=== PATIENT | female | born 1990 | race American Indian/Alaskan Native ===

== ENCOUNTER 2017-04-28 21:40 | Inpatient (IN) | payer MEDICAID ==
[2017-04-28] MEDS ORDERED: Nalbuphine 10 MG/1 ML Vial IVPUSH PRN (22:04)
[2017-04-28] MEDS ORDERED: Misoprostol 200 MCG Tab PO PRN (22:04)
[2017-04-28] MEDS ORDERED: Sodium Chloride 0.9% 10 ML Syringe FLUSH PRN (22:04)
[2017-04-28] MEDS ORDERED: Carboprost Tromethamine 250 MCG/1 ML Amp IM PRN (22:04)
[2017-04-28] MEDS ORDERED: Sodium Chloride 0.9% 2.5 ML Syringe FLUSH PRN (22:04)
[2017-04-28] MEDS ORDERED: Water For Irrigation,Sterile 1,000 ML Container IRR PRN (22:04)
[2017-04-28] MEDS ORDERED: Lidocaine 1% 50 ML MDV INJECT PRN (22:04)
[2017-04-28] MEDS ORDERED: Methylergonovine 0.2 MG/1 ML Amp IM PRN (22:04)
[2017-04-28] MEDS ORDERED: Butorphanol 1 MG/ML SDV IVPUSH PRN (22:04)
[2017-04-28] MEDS ORDERED: Oxytocin/Lactated Ringers 30 UNIT/500 ML BAG IV ONE (22:05)
[2017-04-28] MEDS: Lactated Ringers 1,000 ML IV SCH ×3 (22:14→23:34)
[2017-04-28] MEDS ORDERED: Ropivacaine HCl/PF 100 ML ONE (23:15)
[2017-04-28] MEDS ORDERED: fentaNYL 100 MCG/2 ML SDV ONE (23:15)
--- NOTE | 2017-04-28 23:45 | PCM.PREANE ---
Preanesthetic Assessment - Anesthesia/Transfusion/Family Hx Anesthesia History: Prior Anesthesia Without Reaction Transfusion History: No Prior Transfusion(s) - Review of Systems General: No Symptoms Pulmonary: No Symptoms Cardiovascular: No Symptoms Gastrointestinal: No Symptoms Neurological: No Symptoms Other: Reports: None - Physical Assessment Height: 5 ft 7 in Weight: 94.957 kg ASA Class: 2 Mental Status: Alert & Oriented x3 Airway Class: Mallampati = 2 Dentition: Reports: Normal Dentition Thyro-Mental Finger Breadths: 3 Mouth Opening Finger Breadths: 3 ROM/Head Extension: Full Lungs: Clear to Auscultation, Normal Respiratory Effort Cardiovascular: Regular Rate, Regular Rhythm - Lab Values: Laboratory Last Values WBC 9.59 K/uL (4.0-11.0) 04/28/17 22:12 RBC 3.79 M/uL (4.30-5.90) L 04/28/17 22:12 Hgb 11.5 g/dL (12.0-16.0) L 04/28/17 22:12 Hct 33.5 % (36.0-46.0) L 04/28/17 22:12 MCV 88.4 fL (80.0-98.0) 04/28/17 22:12 MCH 30.3 pg (27.0-32.0) 04/28/17 22:12 MCHC 34.3 g/dL (31.0-37.0) 04/28/17 22:12 RDW Std Deviation 48.4 fl (28.0-62.0) 04/28/17 22:12 RDW Coeff of Placido 15 % (11.0-15.0) 04/28/17 22:12 Plt Count 217 K/uL (150-400) 04/28/17 22:12 MPV 9.70 fL (7.40-12.00) 04/28/17 22:12 Nucleated RBC % 0.0 /100WBC 04/28/17 22:12 Nucleated RBCs # 0 K/uL 04/28/17 22:12 Blood Type A POSITIVE 04/28/17 22:12 Antibody Screen NEGATIVE 04/28/17 22:12 - Allergies Allergies/Adverse Reactions: Allergies Allergy/AdvReac Type Severity Reaction Status Date / Time No Known Allergies Allergy Verified 04/28/17 22:03 - Acknowledgements Anesthesia Type Planned: Epidural Pt an Appropriate Candidate for the Planned Anesthesia: Yes Alternatives and Risks of Anesthesia Discussed w Pt/Guardian: Yes Pt/Guardian Understands and Agrees with Anesthesia Plan: Yes PreAnesthesia Questionnaire HEENT History: Reports: None Cardiovascular History: Reports: Heart Murmur Other Cardiovascular History: states had murmur as a child Other Respiratory History: sports induced asthma Gastrointestinal History: Reports: GERD Genitourinary History: Reports: None 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: , Spontaneous : 6 Para: 3 LMP (Approximate): Musculoskeletal History: Reports: None Neurological History: Reports: None Psychiatric History: Reports: Anxiety, Depression Endocrine/Metabolic History: Reports: Obesity/BMI 30+ Hematologic History: Reports: None Immunologic History: Reports: None Oncologic (Cancer) History: Reports: None Dermatologic History: Reports: None - Infectious Disease History Infectious Disease History: Reports: None - Past Surgical History GI Surgical History: Reports: None Female Surgical History: Reports: None - SUBSTANCE USE Smoking Status *Q: Never Smoker Tobacco Use Within Last Twelve Months: No Recreational Drug Use History: No - HOME MEDS Home Medications: Home Meds Docusate Sodium [Colace] 1 cap PO BID 01/22/16 [History] Polyethylene Glycol 3350 1 packet PO DAILY 01/22/16 [History] Sertraline [Zoloft] 0.5 tab PO DAILY 01/22/16 [History] Triamcinolone Acetonide [Triamcinolone Acetonide 0.1% Crm] 1 lotion TOP TID [History] - CURRENT (IN HOUSE) MEDS Current Meds: Current Medications Butorphanol Tartrate (Stadol) 1 mg IVPUSH Q1H PRN PRN Reason: Pain Carboprost Tromethamine (Hemabate Ds) 250 mcg IM ASDIRECTED PRN PRN Reason: Post Hemorrhage Lactated Ringer's (Ringers, Lactated) 1,000 mls @ 150 mls/hr IV ASDIRECTED HUE Last Admin: 04/28/17 23:34 Dose: 999 mls/hr Oxytocin/Lactated Ringer's (Pitocin In Lr 30 Units/500 Ml) 30 unit in 500 mls @ 300 mls/hr IV ONETIME ONE Stop: 04/28/17 23:44 Lidocaine HCl (Xylocaine 1%) 50 ml INJECT .ONCE PRN PRN Reason: Laceration repair Methylergonovine Maleate (Methergine) 0.2 mg IM ASDIRECTED PRN PRN Reason: Post Hemorrhage Misoprostol (Cytotec) 200 mcg PO .ONCE PRN PRN Reason: Post Hemorrhage Nalbuphine HCl (Nubain) 10 mg IVPUSH Q1H PRN PRN Reason: Pain (severe 7-10) Sodium Chloride (Saline Flush) 10 ml FLUSH ASDIRECTED PRN PRN Reason: Keep Vein Open Sodium Chloride (Saline Flush) 2.5 ml FLUSH ASDIRECTED PRN PRN Reason: Keep Vein Open Sterile Water (Sterile Water For Irrigation) 1,000 ml IRR ASDIRECTED PRN PRN Reason: delivery Discontinued Medications Fentanyl (Sublimaze) Confirm Administered Dose 100 mcg .ROUTE .STK-MED ONE Stop: 04/28/17 23:16 Ropivacaine (Naropin 0.2%) Confirm Administered Dose 100 mls @ as directed .ROUTE .STK-MED ONE Stop: 04/28/17 23:16
[2017-04-29] MEDS ORDERED: Bupivacaine 0.5% 10 ML SDV ONE (00:21)
[2017-04-29] MEDS ORDERED: LORazepam 1 MG Tab PO ONE (01:24)
[2017-04-29] MEDS ORDERED: Bisacodyl 10 MG Supp RECTAL PRN (05:49)
[2017-04-29] MEDS ORDERED: Ibuprofen 400 MG Tab PO PRN (05:49)
[2017-04-29] MEDS ORDERED: Lanolin 100% Cream 7 GM Tube TOP PRN (05:49)
[2017-04-29] MEDS ORDERED: oxyCODONE 5 MG Tab PO PRN (05:49)
[2017-04-29] MEDS ORDERED: Docusate Sodium 100 MG Cap PO PRN (05:49)
[2017-04-29] MEDS ORDERED: Acetaminophen 500 MG Tab PO PRN ×2 (05:49)
[2017-04-29] MEDS ORDERED: Ibuprofen 800 MG Tab PO PRN (05:49)
[2017-04-29] MEDS ORDERED: Witch Hazel Medicated Pads 40/Jar TOP PRN (05:49)
[2017-04-29] MEDS ORDERED: Benzocaine/Menthol 20%-0.5% Spray 78 GM Cannister TOP PRN (05:49)
[2017-04-29] MEDS ORDERED: Measles, Mumps & Rubella Vaccine 0.5 ML SDV SUBCUT ONE (05:49)
--- NOTE | 2017-04-29 08:26 | OR ---
SURGEON: Dagmar Giang MD DATE OF PROCEDURE: 04/29/2017 PREOPERATIVE DIAGNOSES: 1. Term at 39 weeks and 3 days. 2. Spontaneous labor. POSTOPERATIVE DIAGNOSES: 1. Term at 39 weeks and 3 days. 2. Spontaneous labor. 3. Delivered. PROCEDURE: Spontaneous vaginal delivery. ANESTHESIA: Epidural. ESTIMATED BLOOD LOSS: 100 mL. COMPLICATIONS: None. DISPOSITION: Mother and baby stable in Labor and Delivery room, bonding. FINDINGS: Live female , 4040 grams, score of 8 and 9 at 1 and 5 minutes respectively. Grossly normal placenta with three-vessel cord. Intact perineum. BRIEF HISTORY: Alea is a 26-year-old, G6, P3-0-2-3, who presented at about 11:00 p.m. on the 28 of April at 39 weeks and 2 days with history of regular contractions since 7:00 p.m. Denied vaginal bleeding, leakage of fluid, and reported active fetus. GBS negative. care was complicated by persistent glycosuria but with normal diabetic screening and fingersticks. On admission, the patient was 4 cm dilated, 80% effaced, station -2, christine every 1- 4 minutes. She requested and received an epidural for pain management and there after an artificial rupture of membranes performed with clear amniotic fluid returned. She progressed to full dilatation within 4hours and commenced active pushing. She pushed a little bit over 45 minutes, bringing the baby's head down to a +4 station, and was set up for delivery in modified dorsal lithotomy position. PROCEDURE IN DETAIL: She had a spontaneous vaginal delivery of a live female infant in direct occipital anterior position, no nuchal cord, clear amniotic fluid at delivery. Anterior and the posterior shoulder and the rest of the baby were delivered without difficulty. Baby was delivered onto the maternal abdomen in the presence of the attendant nursery staff. Baby was vigorous and cried spontaneously at . Delayed cord clamping was performed and cord was subsequently cut by the father of the baby. With delivery of the , oxytocin infusion was commenced for active management of third stage of labor. Cord blood and gas samples were obtained. The placenta was delivered by controlled cord traction, appeared to be complete and intact. Examination of the perineum revealed no lacerations. Uterine massage was performed. The uterus was found to be well contracted below the umbilicus. The patient tolerated the procedure well. Sponge, instrument, and needle counts were correct at the end of the delivery. SUSIE / SHEYLA /[id number] MTDCyndi
--- NOTE | 2017-04-29 17:10 | PCM48HPAN ---
Post Anesthesia Note - EVALUATION WITHIN 48HRS OF ANESTHETIC Vital Signs in Normal Range: Yes Patient Participated in Evaluation: Yes Respiratory Function Stable: Yes Airway Patent: Yes Cardiovascular Function Stable: Yes Hydration Status Stable: Yes Pain Control Satisfactory: Yes Nausea and Vomiting Control Satisfactory: Yes Mental Status Recovered: Yes
[2017-04-30 05:21] VITALS: BP 107/60
--- NOTE | 2017-04-30 11:32 | PCM.PNPP ---
- General Info Date of Service: 04/30/17 Functional Status: Reports: Pain Controlled, Tolerating Diet, Ambulating - Review of Systems General: Denies: Fever, Malaise, Chills HEENT: Denies: Headaches Pulmonary: Denies: Shortness of Breath, Pleuritic Chest Pain, Cough Cardiovascular: Denies: Chest Pain, Palpitations, Dyspnea on Exertion Gastrointestinal: Denies: Difficulty Swallowing Genitourinary: Denies: Dysuria, Pain, Incontinence, Retention Psychiatric: Denies: Depression, Mood Lability, Anxiety - General Info Date of Service: 04/30/17 - Patient Data Vital Signs - Most Recent: Last Vital Signs Temp 36.3 C 04/30/17 04:45 Pulse 74 04/30/17 04:45 Resp 16 04/30/17 04:45 BP 107/60 04/30/17 04:45 Pulse Ox 97 04/30/17 04:45 Weight - Most Recent: 209 lb 5.526 oz Lab Results - Last 24 Hours: Laboratory Results - last 24 hr 04/30/17 Range/Units 05:35 Hgb 10.8 L (12.0-16.0) g/dL Hct 32.5 L (36.0-46.0) % Med Orders - Current: Current Medications Acetaminophen (Tylenol Extra Strength) 500 mg PO Q4H PRN PRN Reason: Pain Last Admin: 04/29/17 12:08 Dose: 500 mg Acetaminophen (Tylenol Extra Strength) 1,000 mg PO Q4H PRN PRN Reason: Pain Benzocaine/Menthol (Dermoplast Pain Relief 20%-0.5% [place]) 78 gm TOP ASDIRECTED PRN PRN Reason: Perineal Comfort Measure Last Admin: 04/29/17 06:04 Dose: 1 canister Bisacodyl (Dulcolax) 10 mg RECTAL .ONCE PRN PRN Reason: Constipation Docusate Sodium (Colace) 100 mg PO BID PRN PRN Reason: Constipation Last Admin: 04/30/17 09:18 Dose: 100 mg Emollient Ointment (Lansinoh Hpa) 0 gm TOP ASDIRECTED PRN PRN Reason: Sore Nipples Ibuprofen (Motrin) 400 mg PO Q4H PRN PRN Reason: Pain Ibuprofen (Motrin) 800 mg PO Q6H PRN PRN Reason: Pain Last Admin: 04/30/17 01:26 Dose: 800 mg Oxycodone HCl (Oxycodone) 5 mg PO Q2H PRN PRN Reason: Pain Last Admin: 04/29/17 12:09 Dose: 5 mg Witch Mary (Tucks) 1 pad TOP ASDIRECTED PRN PRN Reason: comfort care Last Admin: 04/29/17 06:04 Dose: 1 tub Discontinued Medications Bupivacaine HCl (Sensorcaine-Mpf 0.5%) Confirm Administered Dose 10 ml .ROUTE .STK-MED ONE Stop: 04/29/17 00:22 Butorphanol Tartrate (Stadol) 1 mg IVPUSH Q1H PRN PRN Reason: Pain Carboprost Tromethamine (Hemabate Ds) 250 mcg IM ASDIRECTED PRN PRN Reason: Post Hemorrhage Fentanyl (Sublimaze) Confirm Administered Dose 100 mcg .ROUTE .STK-MED ONE Stop: 04/28/17 23:16 Lactated Ringer's (Ringers, Lactated) 1,000 mls @ 150 mls/hr IV ASDIRECTED HUE Last Admin: 04/28/17 23:34 Dose: 999 mls/hr Oxytocin/Lactated Ringer's (Pitocin In Lr 30 Units/500 Ml) 30 unit in 500 mls @ 300 mls/hr IV ONETIME ONE Stop: 04/28/17 23:44 Last Admin: 04/29/17 05:24 Dose: 300 mls/hr Ropivacaine (Naropin 0.2%) Confirm Administered Dose 100 mls @ as directed .ROUTE .STK-MED ONE Stop: 04/28/17 23:16 Lidocaine HCl (Xylocaine 1%) 50 ml INJECT .ONCE PRN PRN Reason: Laceration repair Lorazepam (Ativan) 1 mg PO ONETIME ONE Stop: 04/29/17 01:25 Last Admin: 04/29/17 01:39 Dose: 1 mg Measles/Mumps/Rubella Vaccine Live (M-M-R Ii Vaccine) 0.5 ml SUBCUT .ONCE ONE Stop: 04/29/17 05:50 Methylergonovine Maleate (Methergine) 0.2 mg IM ASDIRECTED PRN PRN Reason: Post Hemorrhage Misoprostol (Cytotec) 200 mcg PO .ONCE PRN PRN Reason: Post Hemorrhage Nalbuphine HCl (Nubain) 10 mg IVPUSH Q1H PRN PRN Reason: Pain (severe 7-10) Sodium Chloride (Saline Flush) 10 ml FLUSH ASDIRECTED PRN PRN Reason: Keep Vein Open Sodium Chloride (Saline Flush) 2.5 ml FLUSH ASDIRECTED PRN PRN Reason: Keep Vein Open Sterile Water (Sterile Water For Irrigation) 1,000 ml IRR ASDIRECTED PRN PRN Reason: delivery Last Admin: 04/29/17 05:20 Dose: 1,000 ml - Infant Interaction Disposition, : in Room with Family Interaction: Holding Feeding: Breastfed ; Nursed Well Support Person: Significant Other - Recovery Exam Fundal Tone: Firm Fundal Level: 2 Fingerbreadths Below Umbilicus Fundal Placement: Midline Lochia Amount: Scant Lochia Color: Rubra/Red Perineum Description: Intact, Minimal Bruising/Swelling Bladder Status: Voiding Urinary Elimination: Voided - Exam General: Alert, Oriented Lungs: Clear to Auscultation, Normal Respiratory Effort Cardiovascular: Regular Rate, Regular Rhythm GI/Abdominal Exam: Normal Bowel Sounds Extremities: No Pedal Edema Psy/Mental Status: Alert, Normal Affect, Normal Mood - Problem List & Annotations (1) Vaginal delivery SNOMED Code(s): 037392291 Code(s): O80 - ENCOUNTER FOR FULL-TERM UNCOMPLICATED DELIVERY Status: Acute Current Visit: Yes - Problem List Review Problem List Initiated/Reviewed/Updated: Yes - Assessment Assessment:: PPD#1 s/p , stable and afebrile Clinically stable for discharge - Plan Plan:: Discharge instructions given Bleeding and infection precautions reviewed Nothing in the vagina for 6 weeks Continue PNV S/S blues and depression reviewed: Patient will restart her Paroxetin , she has enough supply at home Follow up in the clinic in 6 weeks or earlier if any concerns
== END 2017-04-30 14:25 | disposition home or self-care (01) | DRG 775 ==
LOC: MW.OBCHECK 21:40 → MW.OB 21:44 → MW.OBCHECK 22:03 → MW.OB 22:04 → OBSVTOIN 04-29 05:23 → MW.OB 04-29 12:03
PROVIDERS: ADMIT Obstetrics & Gynecology; ATTEND Obstetrics & Gynecology
PROC: 10E0XZZ Delivery of Products of Conception, External Approach (ICD-10-PCS; principal; 2017-04-29)
PROC: 10907ZC Drainage of Amniotic Fluid, Therapeutic from Products of Conception, Via Natural or Artificial Opening (ICD-10-PCS; 2017-04-29)
DX: O80 Encounter for full-term uncomplicated delivery (principal); Z3A.39 39 weeks gestation of pregnancy; Z37.0 Single live birth
CPT/HCPCS: 36415; 51703; 59025; 82962; 85014; 85018; 85027; 86850; 86900; 86901; 90707; A9270-GY; J2795; J3010; J7120

== ENCOUNTER 2017-10-11 20:00 | Emergency (ER) | payer BC, OTHER ==
[2017-10-11] MEDS ORDERED: Ketorolac 30 MG/ML SDV IVPUSH ONE ×2 (20:23→21:09)
[2017-10-11] MEDS ORDERED: Sodium Chloride 0.9% 1,000 ML IV ONE (20:26)
[2017-10-11] MEDS ORDERED: Sodium Chloride 0.9% 500 ML IV SCH (20:30)
--- NOTE | 2017-10-11 20:32 | EDM.PDOC ---
<Jocelyn Larios - Last Filed: 10/11/17 22:16> ED HPI GENERAL MEDICAL PROBLEM - General Chief Complaint: Abdominal Pain Stated Complaint: RT SIDE ABDOMINAL PAIN/DIZZY Time Seen by Provider: 10/11/17 20:18 Source of Information: Reports: Patient History Limitations: Reports: No Limitations - History of Present Illness INITIAL COMMENTS - FREE TEXT/NARRATIVE: HISTORY AND PHYSICAL: History of present illness: [Patient comes to the emergency room complaining of right-sided back and abdominal pain. Pain began one to 2 hours ago and has gradually been getting worse. She rates the pain as 10 out of 10. Pain is to her right mid back and right flank, upper abdomen and lower abdomen. The pain has been constant for the last 2 hours. She has been following with her regular provider in [place] and is scheduled for a gallbladder ultrasound in the next couple of days due to some epigastric pain she's been experiencing. Feels that the pain she is experiencing tonight is different than the epigastric pain she's been having. Has been taking ranitidine 150 mg daily, until one lorazepam since the onset of the pain. Was experiencing some tightness across her chest and some shortness of breath which is not uncommon for her when she is experiencing anxiety. History of PTSD. One dose of Lorazepam has improved these symptoms considerably.] Review of systems: As per history of present illness and below otherwise all systems reviewed and negative. Past medical history: As per history of present illness and as reviewed below otherwise noncontributory. Surgical history: As per history of present illness and as reviewed below otherwise noncontributory. Social history: No reported history of drug or alcohol abuse. Family history: As per history of present illness and as reviewed below otherwise noncontributory. Physical exam: HEENT: Atraumatic, normocephalic. Oral mucous membranes are pink and moist. Neck supple no lymphadenopathy. Lungs: Clear to auscultation, breath sounds equal bilaterally. Heart: S1S2, regular, negative for clicks, rubs, or JVD. Abdomen: Bowel sounds are normoactive throughout. Abdomen is soft and nondistended. She is tender with palpation over the right upper quadrant and right flank area. No Masses guarding or rebound. Negative for costovertebral tenderness. Pelvis: Stable nontender. Genitourinary: Deferred. Rectal: Deferred. Extremities: Atraumatic. Neurovascular unremarkable. Neuro: Awake, alert, oriented. Motor and sensory unremarkable throughout. Exam nonfocal. Diagnostics: [CBC, CMP, lipase, amylase, urinalysis, urine , abdominal ultrasound] Therapeutics: [1 L normal saline, Toradol 30 mg IV, Zofran 4 mg IV, morphine 2 mg IV] Impression: [RUQ abd pain] Plan: [] Definitive disposition and diagnosis as appropriate pending reevaluation and review of above. - Related Data Allergies Allergy/AdvReac Type Severity Reaction Status Date / Time No Known Allergies Allergy Verified 04/28/17 22:03 Home Meds: Home Meds Polyethylene Glycol 3350 1 packet PO DAILY 01/22/16 [History] Vit W-Ca,Fe,FA(<1 mg) [ Vitamins] 1 tab PO DAILY 04/29/17 [ History] Past Medical History HEENT History: Reports: None Cardiovascular History: Reports: Heart Murmur Other Cardiovascular History: states had murmur as a child Other Respiratory History: sports induced asthma Gastrointestinal History: Reports: GERD Genitourinary History: Reports: None [employer] History: Reports: , Spontaneous Musculoskeletal History: Reports: None Neurological History: Reports: None Psychiatric History: Reports: Anxiety, Depression Endocrine/Metabolic History: Reports: Obesity/BMI 30+ Hematologic History: Reports: None Immunologic History: Reports: None Oncologic (Cancer) History: Reports: None Dermatologic History: Reports: None - Infectious Disease History Infectious Disease History: Reports: None - Past Surgical History GI Surgical History: Reports: None Female Surgical History: Reports: None Social & Family History - Family History Family Medical History: Noncontributory Cardiac: Reports: Other (See Below) Other Cardiac Family History: Patient states mother's side of family may have issues, she would have to ask her. Endocrine/Metabolic: Reports: Diabetes, type II - Tobacco Use Smoking Status *Q: Never Smoker - Recreational Drug Use Recreational Drug Use: No Drug Use in Last 12 Months: No ED ROS GENERAL - Review of Systems Review Of Systems: ROS reveals no pertinent complaints other than HPI. ED EXAM, GI/ABD - Physical Exam Exam: See Below Course - Orders/Labs/Meds Orders: Active Orders 24 hr Category Date Time Status Abdomen Ltd [US] Stat Exams 10/11/17 21:06 Taken Labs: Laboratory Tests 0210/11/17 10/11/17 Range/Units 20:28 20:28 20:33 WBC (4.0-11.0) K/uL RBC (4.30-5.90) M/uL Hgb (12.0-16.0) g/dL Hct (36.0-46.0) % MCV (80.0-98.0) fL MCH (27.0-32.0) pg MCHC (31.0-37.0) g/dL RDW Std Deviation (28.0-62.0) fl RDW Coeff of Placido (11.0-15.0) % Plt Count (150-400) K/uL MPV (7.40-12.00) fL Neut % (Auto) (48.0-80.0) % Lymph % (Auto) (16.0-40.0) % [place] % (Auto) (0.0-15.0) % Eos % (Auto) (0.0-7.0) % Baso % (Auto) (0.0-1.5) % Neut # (Auto) (1.4-5.7) K/uL Lymph # (Auto) (0.6-2.4) K/uL [place] # (Auto) (0.0-0.8) K/uL Eos # (Auto) (0.0-0.7) K/uL Baso # (Auto) (0.0-0.1) K/uL Nucleated RBC % /100WBC Nucleated RBCs # K/uL Sodium 140 (136-146) mmol/L Potassium 3.6 (3.5-5.1) mmol/L Chloride 106 (98-110) mmol/L Carbon Dioxide 23 (21-31) mmol/L BUN 12 (6.0-23.0) mg/dL Creatinine 0.7 (0.6-1.5) mg/dL Est Cr Clr Drug Dosing TNP Estimated GFR (MDRD) > 60.0 ml/min Glucose 92 (60-110) mg/dL Calcium 9.7 (8.8-10.8) mg/dL Total Bilirubin 0.4 (0.1-1.5) mg/dL AST 31 (5-40) IU/L ALT 61 H (8-54) IU/L Alkaline Phosphatase 105 (40-150) Total Protein 8.1 H (6.0-8.0) g/dL Albumin 4.7 (3.5-5.0) g/dL Globulin 3.4 (2.0-3.5) g/dL Albumin/Globulin Ratio 1.4 (1.3-2.8) Amylase 44 (10-90) U/L Lipase 17 (7-80) U/L Urine Color YELLOW Urine Appearance CLEAR Urine pH 7.0 (5.0-8.0) Ur Specific [place] 1.020 (1.001-1.035) Urine Protein NEGATIVE (NEGATIVE) mg/dL Urine Glucose (UA) NEGATIVE (NEGATIVE) mg/dL Urine Ketones NEGATIVE (NEGATIVE) mg/dL Urine Occult Blood NEGATIVE (NEGATIVE) Urine Nitrite NEGATIVE (NEGATIVE) Urine Bilirubin NEGATIVE (NEGATIVE) Urine Urobilinogen 1.0 (<2.0) EU/dL Ur Leukocyte Esterase NEGATIVE (NEGATIVE) Urine RBC 0-1 (0-2/HPF) Urine WBC 0-1 (0-5/HPF) Ur Epithelial Cells FEW (NONE-FEW) Amorphous Sediment LIGHT (NEGATIVE) Urine Bacteria FEW (NEGATIVE) Urine HCG, Qual NEGATIVE (NEGATIVE) 10/11/17 Range/Units 20:33 WBC 7.22 (4.0-11.0) K/uL RBC 4.51 (4.30-5.90) M/uL Hgb 13.5 (12.0-16.0) g/dL Hct 38.7 (36.0-46.0) % MCV 85.8 (80.0-98.0) fL MCH 29.9 (27.0-32.0) pg MCHC 34.9 (31.0-37.0) g/dL RDW Std Deviation 39.9 (28.0-62.0) fl RDW Coeff of Placido 13 (11.0-15.0) % Plt Count 265 (150-400) K/uL MPV 9.60 (7.40-12.00) fL Neut % (Auto) 55.5 (48.0-80.0) % Lymph % (Auto) 33.4 (16.0-40.0) % [place] % (Auto) 7.5 (0.0-15.0) % Eos % (Auto) 3.2 (0.0-7.0) % Baso % (Auto) 0.4 (0.0-1.5) % Neut # (Auto) 4.0 (1.4-5.7) K/uL Lymph # (Auto) 2.4 (0.6-2.4) K/uL [place] # (Auto) 0.5 (0.0-0.8) K/uL Eos # (Auto) 0.2 (0.0-0.7) K/uL Baso # (Auto) 0.0 (0.0-0.1) K/uL Nucleated RBC % 0.0 /100WBC Nucleated RBCs # 0 K/uL Sodium (136-146) mmol/L Potassium (3.5-5.1) mmol/L Chloride (98-110) mmol/L Carbon Dioxide (21-31) mmol/L BUN (6.0-23.0) mg/dL Creatinine (0.6-1.5) mg/dL Est Cr Clr Drug Dosing Estimated GFR (MDRD) ml/min Glucose (60-110) mg/dL Calcium (8.8-10.8) mg/dL Total Bilirubin (0.1-1.5) mg/dL AST (5-40) IU/L ALT (8-54) IU/L Alkaline Phosphatase (40-150) Total Protein (6.0-8.0) g/dL Albumin (3.5-5.0) g/dL Globulin (2.0-3.5) g/dL Albumin/Globulin Ratio (1.3-2.8) Amylase (10-90) U/L Lipase (7-80) U/L Urine Color Urine Appearance Urine pH (5.0-8.0) Ur Specific [place] (1.001-1.035) Urine Protein (NEGATIVE) mg/dL Urine Glucose (UA) (NEGATIVE) mg/dL Urine Ketones (NEGATIVE) mg/dL Urine Occult Blood (NEGATIVE) Urine Nitrite (NEGATIVE) Urine Bilirubin (NEGATIVE) Urine Urobilinogen (<2.0) EU/dL Ur Leukocyte Esterase (NEGATIVE) Urine RBC (0-2/HPF) Urine WBC (0-5/HPF) Ur Epithelial Cells (NONE-FEW) Amorphous Sediment (NEGATIVE) Urine Bacteria (NEGATIVE) Urine HCG, Qual (NEGATIVE) Meds: Medications Discontinued Medications Generic Name Dose Route Start Last Admin Trade Name Freq PRN Reason Stop Dose Admin Sodium Chloride 500 mls @ 999 mls/hr 10/11/17 20:30 Normal Saline IV STAT HUE Sodium Chloride 1,000 mls @ 999 mls/hr 10/11/17 20:26 10/11/17 20:37 Normal Saline IV 10/11/17 21:26 999 mls/hr STAT ONE Administration Ketorolac Tromethamine 30 mg 10/11/17 20:23 10/11/17 20:38 Toradol IVPUSH 10/11/17 20:24 Not Given ONETIME ONE Ketorolac Tromethamine 30 mg 10/11/17 21:09 10/11/17 21:32 Toradol IVPUSH 10/11/17 21:10 30 mg ONETIME ONE Administration Morphine Sulfate 2 mg 10/11/17 21:09 10/11/17 21:33 Morphine IVPUSH 10/11/17 21:10 2 mg ONETIME ONE Administration Ondansetron HCl 4 mg 10/11/17 21:09 10/11/17 21:32 Zofran IVPUSH 10/11/17 21:10 4 mg ONETIME ONE Administration - Re-Assessments/Exams Free Text/Narrative Re-Assessment/Exam: 10/11/17 21:10 Patient had refused pain medications prior. Upon reading exam she is complaining more of pain across her entire upper abdomen and with leg pain medication at this time. Morphine and Zofran are ordered. Gallbladder ultrasound is also ordered Departure - Departure Disposition: Home, Self-Care 01 Clinical Impression: Cholelithiasis - Discharge Information Referrals: PCP,None [Primary Care Provider] - Forms: ED Department Discharge Additional Instructions: My general discharge The following information is given to patients seen in the emergency department who are being discharged to home. This information is to outline your options for follow-up care. We provide all patients seen in our emergency department with a follow-up referral. The need for follow-up, as well as the timing and circumstances, are variable depending upon the specifics of your emergency department visit. If you don't have a primary care physician on staff, we will provide you with a referral. We always advise you to contact your personal physician following an emergency department visit to inform them of the circumstance of the visit and for follow-up with them and/or the need for any referrals to a consulting specialist. The emergency department will also refer you to a specialist when appropriate. This referral assures that you have the opportunity for follow-up care with a specialist. All of these measure are taken in an effort to provide you with optimal care, which includes your follow-up. Under all circumstances we always encourage you to contact your private physician who remains a resource for coordinating your care. When calling for follow-up care, please make the office aware that this follow-up is from your recent emergency room visit. If for any reason you are refused follow-up, please contact the [facility] at and asked to speak to the emergency department charge nurse. My General Surgery [facility] General Surgery Professional Building [address] [place] [address], [address] [place] [address] <Jack Villarreal - Last Filed: 10/11/17 22:36> ED HPI GENERAL MEDICAL PROBLEM - History of Present Illness INITIAL COMMENTS - FREE TEXT/NARRATIVE: This Dr. Villarreal taking over care for patient. I went and fully assessed patient and aware of all previous test done. Ultrasound did come back revealing multiple gallstones present but no evidence of cholecystitis. She did have a positive sonographic Agarwal sign. I did talk to Dr. Weiner, surgery, who is now aware the patient. She has no leukocytosis and all her other labs were unremarkable. He will see the patient tomorrow morning between 8 and 10 during his normal office hours. These instructions were given to the patient and she was given a prescription for [place] 5-325 #10 and Zofran sublingual. Patient was discharged in condition and instructed to return emergency department if she had any further questions or new or worsening symptoms. ED ROS GENERAL - Review of Systems Review Of Systems: See Below ED EXAM, GI/ABD - Physical Exam Exam: See Below Departure - Departure Time of Disposition: 22:36
[2017-10-11 21:04] LABS: CHLORIDE,CL 106 mmol/L (98-110); SODIUM,NA 140 mmol/L (136-146)
[2017-10-11] MEDS ORDERED: Ondansetron 4 MG/2 ML SDV IVPUSH ONE (21:09)
[2017-10-11] MEDS ORDERED: Morphine 2 MG/ML Syringe IVPUSH ONE (21:09)
[2017-10-11 22:42] VITALS: BP 117/68
--- NOTE | 2017-10-12 09:19 | US ---
EXAM DATE: 10/11/17 PATIENT'S AGE: 27 Patient: LOBO QUINTERO Facility: [place], [place] Site . Site : 1990 Study: US Abdomen [id number] 10:09:02 PM Ordering Physician: Doctor Landrum Final Report: INDICATION: Right upper quadrant pain TECHNIQUE: Ultrasound abdomen limited. Sonographic images of the right upper quadrant were obtained using rubio-scale and color Doppler images. COMPARISON: None FINDINGS: Liver: The liver parenchyma is normal in echotexture. Gallbladder: Multiple echogenic shadowing gallstones are present. The gallbladder wall is normal in appearance. No pericholecystic fluid is present. A sonographic Agarwal sign was reported. Common bile duct: 0.6 cm. The common bile duct is normal in appearance and size. Pancreas: The visualized portions of the pancreatic head and body are normal in appearance. Right Kidney: 12.2 cm. No hydronephrosis or ureterectasis is seen. Vascular: Proximal abdominal aorta and IVC are normal in caliber. IMPRESSION: 1. Multiple gallstones are present with no sonographic evidence of cholecystitis at this time. Close clinical follow up is recommended given the presence of sonographic Agarwal`s sign. Dictated by Josh Mijares MD @ 10/11/2017 10:21:23 PM Dictated by: Josh Mijares MD @ 10/11/2017 22:21:27 (Electronic Signature) Report Signed by Proxy. ODELL
== END 2017-10-11 22:55 | disposition home or self-care (01) ==
LOC: MW.ED 20:00
DX: K80.20 Calculus of gallbladder without cholecystitis without obstruction (principal); Z79.899 Other long term (current) drug therapy
CPT/HCPCS: 36415; 76705; 80053; 81001; 81025; 82150; 83690; 85025; 96361; 96374; 96375; 99284; J1885; J2270; J2405; J7040; 99283

== ENCOUNTER 2017-10-18 19:46 | Emergency (ER) | payer BC, OTHER ==
[2017-10-18] MEDS ORDERED: Ondansetron 4 MG/2 ML SDV IVPUSH ONE (20:07)
[2017-10-18 20:12] VITALS: BP 117/63
[2017-10-18] MEDS ORDERED: Sodium Chloride 0.9% 500 ML IV SCH (20:15)
--- NOTE | 2017-10-18 20:16 | EDM.PDOC ---
ED HPI GENERAL MEDICAL PROBLEM - General Chief Complaint: General Stated Complaint: DIZZY Time Seen by Provider: 10/18/17 20:14 Source of Information: Reports: Patient - History of Present Illness INITIAL COMMENTS - FREE TEXT/NARRATIVE: HISTORY AND PHYSICAL: History of present illness: [Patient with history of anxiety presents with dizziness shortness of breath that began approximately one hour ago, she states that she took 1 mg of Ativan at that time, she is in no distress no fever nausea vomiting diarrhea constipation chest pain shortness breath headache or palpitation no bowel or urine symptoms ] Patient has known gallstones and will be following with general surgery concerning this however this does not come into play today, she did have some anxiety reaction and dizziness along with shortness of breath that has all resolved since being here she does have some muscle spasm than on the right paraspinous muscles as well as right pectoralis major but does not describe any injury that would lead to this this has improved with fluid hydration as well as she had taken the Ativan which would help relax her muscles Review of systems: As per history of present illness and below otherwise all systems reviewed and negative. Past medical history: As per history of present illness and as reviewed below otherwise noncontributory. Surgical history: As per history of present illness and as reviewed below otherwise noncontributory. Social history: No reported history of drug or alcohol abuse. Family history: As per history of present illness and as reviewed below otherwise noncontributory. Physical exam: HEENT: Atraumatic, normocephalic, pupils reactive, negative for conjunctival pallor or scleral icterus, mucous membranes moist, throat clear, neck supple, nontender, trachea midline. Lungs: Clear to auscultation, breath sounds equal bilaterally, chest nontender. Heart: S1S2, regular, negative for clicks, rubs, or JVD. Abdomen: Soft, nondistended, nontender. Negative for masses or hepatosplenomegaly. Negative for costovertebral tenderness. Pelvis: Stable nontender. Genitourinary: Deferred. Rectal: Deferred. Extremities: Atraumatic, negative for cords or calf pain. Neurovascular unremarkable. Neuro: Awake, alert, oriented. Cranial nerves II through XII unremarkable. Cerebellum unremarkable. Motor and sensory unremarkable throughout. Exam nonfocal. Diagnostics: [CBC CMP UA cardiac enzymes drug screen EKG Chest 1 view ] Therapeutics: [Patient took Ativan 1 mg by mouth one hour prior to arrival Normal saline bolus 500 mL Zofran 8 mg IV ] Impression: [Dizziness resolved Shortness of breath sensation-resolved Anxiety reaction History of gallstones Paraspinous muscle spasm] Definitive disposition and diagnosis as appropriate pending reevaluation and review of above. RUQ abdomen Pain Score (Numeric/FACES): 10 - Related Data Allergies Allergy/AdvReac Type Severity Reaction Status Date / Time No Known Allergies Allergy Verified 10/18/17 20:09 Home Meds: Home Meds Polyethylene Glycol 3350 1 packet PO DAILY 01/22/16 [History] Vit W-Ca,Fe,FA(<1 mg) [ Vitamins] 1 tab PO DAILY 04/29/17 [ History] LORazepam 1 mg PO DAILY PRN 10/18/17 [History] Past Medical History HEENT History: Reports: None Cardiovascular History: Reports: Heart Murmur Other Cardiovascular History: states had murmur as a child Other Respiratory History: sports induced asthma Gastrointestinal History: Reports: GERD Genitourinary History: Reports: None GUIDE FOREIGN TOUR History: Reports: , Spontaneous Musculoskeletal History: Reports: None Neurological History: Reports: None Psychiatric History: Reports: Anxiety, Depression Endocrine/Metabolic History: Reports: Obesity/BMI 30+ Hematologic History: Reports: None Immunologic History: Reports: None Oncologic (Cancer) History: Reports: None Dermatologic History: Reports: None - Infectious Disease History Infectious Disease History: Reports: None - Past Surgical History GI Surgical History: Reports: None Female Surgical History: Reports: Tubal Ligation Social & Family History - Family History Family Medical History: Noncontributory Cardiac: Reports: Other (See Below) Other Cardiac Family History: Patient states mother's side of family may have issues, she would have to ask her. Endocrine/Metabolic: Reports: Diabetes, type II - Tobacco Use Smoking Status *Q: Never Smoker - Recreational Drug Use Recreational Drug Use: No Drug Use in Last 12 Months: No ED ROS GENERAL - Review of Systems Review Of Systems: ROS reveals no pertinent complaints other than HPI. ED EXAM, GENERAL - Physical Exam Exam: See Below Course - Vital Signs Last Recorded V/S: Last Vital Signs Temp 98.1 F 10/18/17 19:46 Pulse 76 10/18/17 19:46 Resp 20 10/18/17 19:46 BP 117/63 10/18/17 19:46 Pulse Ox 100 10/18/17 19:46 - Orders/Labs/Meds Orders: Active Orders 24 hr Category Date Time Status EKG Documentation Completion [RC] STAT Care 10/18/17 20:33 Active Chest 1V Frontal [CR] Stat Exams 10/18/17 20:14 Ordered Sodium Chloride 0.9% [Normal Saline] 500 ml Med 10/18/17 20:15 Active IV STAT Medication Orders Sodium Chloride (Normal Saline) 500 mls @ 999 mls/hr IV STAT HUE Last Admin: 10/18/17 20:30 Dose: 999 mls/hr Labs: Laboratory Tests 10/18/17 10/18/17 10/18/17 Range/Units 20:19 20:19 20:19 WBC 8.15 (4.0-11.0) K/uL RBC 4.17 L (4.30-5.90) M/uL Hgb 12.3 (12.0-16.0) g/dL Hct 35.1 L (36.0-46.0) % MCV 84.2 (80.0-98.0) fL MCH 29.5 (27.0-32.0) pg MCHC 35.0 (31.0-37.0) g/dL RDW Std Deviation 38.4 (28.0-62.0) fl RDW Coeff of Placido 13 (11.0-15.0) % Plt Count 266 (150-400) K/uL MPV 9.10 (7.40-12.00) fL Neut % (Auto) 66.2 (48.0-80.0) % Lymph % (Auto) 26.6 (16.0-40.0) % [place] % (Auto) 5.6 (0.0-15.0) % Eos % (Auto) 1.2 (0.0-7.0) % Baso % (Auto) 0.4 (0.0-1.5) % Neut # (Auto) 5.4 (1.4-5.7) K/uL Lymph # (Auto) 2.2 (0.6-2.4) K/uL [place] # (Auto) 0.5 (0.0-0.8) K/uL Eos # (Auto) 0.1 (0.0-0.7) K/uL Baso # (Auto) 0.0 (0.0-0.1) K/uL Nucleated RBC % 0.0 /100WBC Nucleated RBCs # 0 K/uL Sodium 139 (136-146) mmol/L Potassium 3.5 (3.5-5.1) mmol/L Chloride 108 (98-110) mmol/L Carbon Dioxide 22 (21-31) mmol/L BUN 11 (6.0-23.0) mg/dL Creatinine 0.8 (0.6-1.5) mg/dL Est Cr Clr Drug Dosing TNP Estimated GFR (MDRD) > 60.0 ml/min Glucose 109 (60-110) mg/dL Calcium 9.4 (8.8-10.8) mg/dL Total Bilirubin 0.4 (0.1-1.5) mg/dL AST 30 (5-40) IU/L ALT 65 H (8-54) IU/L Alkaline Phosphatase 95 (40-150) Creatine Kinase 62 (9-236) IU/L CK-MB (CK-2) 0.7 (0-6.6) ng/ml Troponin I < 0.10 (0.0-0.29) NG/ML Total Protein 7.1 (6.0-8.0) g/dL Albumin 4.2 (3.5-5.0) g/dL Globulin 2.9 (2.0-3.5) g/dL Albumin/Globulin Ratio 1.5 (1.3-2.8) Urine Color Urine Appearance Urine pH (5.0-8.0) Ur Specific [place] (1.001-1.035) Urine Protein (NEGATIVE) mg/dL Urine Glucose (UA) (NEGATIVE) mg/dL Urine Ketones (NEGATIVE) mg/dL Urine Occult Blood (NEGATIVE) Urine Nitrite (NEGATIVE) Urine Bilirubin (NEGATIVE) Urine Urobilinogen (<2.0) EU/dL Ur Leukocyte Esterase (NEGATIVE) Urine RBC (0-2/HPF) Urine WBC (0-5/HPF) Ur Epithelial Cells (NONE-FEW) Urine Bacteria (NEGATIVE) Urine HCG, Qual (NEGATIVE) Urine Opiates Screen (NEGATIVE) Ur Oxycodone Screen (NEGATIVE) Urine Methadone Screen (NEGATIVE) Ur Barbiturates Screen (NEGATIVE) Ur Phencyclidine Scrn (NEGATIVE) Ur Amphetamine Screen (NEGATIVE) U Methamphetamines Scrn (NEGATIVE) U Benzodiazepines Scrn (NEGATIVE) U Cocaine Metab Screen (NEGATIVE) U Marijuana (THC) Screen (NEGATIVE) 10/18/17 10/18/17 10/18/17 Range/Units 20:23 20:23 20:23 WBC (4.0-11.0) K/uL RBC (4.30-5.90) M/uL Hgb (12.0-16.0) g/dL Hct (36.0-46.0) % MCV (80.0-98.0) fL MCH (27.0-32.0) pg MCHC (31.0-37.0) g/dL RDW Std Deviation (28.0-62.0) fl RDW Coeff of Placido (11.0-15.0) % Plt Count (150-400) K/uL MPV (7.40-12.00) fL Neut % (Auto) (48.0-80.0) % Lymph % (Auto) (16.0-40.0) % [place] % (Auto) (0.0-15.0) % Eos % (Auto) (0.0-7.0) % Baso % (Auto) (0.0-1.5) % Neut # (Auto) (1.4-5.7) K/uL Lymph # (Auto) (0.6-2.4) K/uL [place] # (Auto) (0.0-0.8) K/uL Eos # (Auto) (0.0-0.7) K/uL Baso # (Auto) (0.0-0.1) K/uL Nucleated RBC % /100WBC Nucleated RBCs # K/uL Sodium (136-146) mmol/L Potassium (3.5-5.1) mmol/L Chloride (98-110) mmol/L Carbon Dioxide (21-31) mmol/L BUN (6.0-23.0) mg/dL Creatinine (0.6-1.5) mg/dL Est Cr Clr Drug Dosing Estimated GFR (MDRD) ml/min Glucose (60-110) mg/dL Calcium (8.8-10.8) mg/dL Total Bilirubin (0.1-1.5) mg/dL AST (5-40) IU/L ALT (8-54) IU/L Alkaline Phosphatase (40-150) Creatine Kinase (9-236) IU/L CK-MB (CK-2) (0-6.6) ng/ml Troponin I (0.0-0.29) NG/ML Total Protein (6.0-8.0) g/dL Albumin (3.5-5.0) g/dL Globulin (2.0-3.5) g/dL Albumin/Globulin Ratio (1.3-2.8) Urine Color YELLOW Urine Appearance CLEAR Urine pH 6.0 (5.0-8.0) Ur Specific [place] <= 1.005 (1.001-1.035) Urine Protein NEGATIVE (NEGATIVE) mg/dL Urine Glucose (UA) NEGATIVE (NEGATIVE) mg/dL Urine Ketones NEGATIVE (NEGATIVE) mg/dL Urine Occult Blood NEGATIVE (NEGATIVE) Urine Nitrite NEGATIVE (NEGATIVE) Urine Bilirubin NEGATIVE (NEGATIVE) Urine Urobilinogen 0.2 (<2.0) EU/dL Ur Leukocyte Esterase NEGATIVE (NEGATIVE) Urine RBC 0-1 (0-2/HPF) Urine WBC 0-1 (0-5/HPF) Ur Epithelial Cells RARE (NONE-FEW) Urine Bacteria RARE (NEGATIVE) Urine HCG, Qual NEGATIVE (NEGATIVE) Urine Opiates Screen NEGATIVE (NEGATIVE) Ur Oxycodone Screen NEGATIVE (NEGATIVE) Urine Methadone Screen NEGATIVE (NEGATIVE) Ur Barbiturates Screen NEGATIVE (NEGATIVE) Ur Phencyclidine Scrn NEGATIVE (NEGATIVE) Ur Amphetamine Screen NEGATIVE (NEGATIVE) U Methamphetamines Scrn NEGATIVE (NEGATIVE) U Benzodiazepines Scrn NEGATIVE (NEGATIVE) U Cocaine Metab Screen NEGATIVE (NEGATIVE) U Marijuana (THC) Screen NEGATIVE (NEGATIVE) Meds: Medications Generic Name Dose Route Start Last Admin Trade Name Freq PRN Reason Stop Dose Admin Sodium Chloride 500 mls @ 999 mls/hr 10/18/17 20:15 10/18/17 20:30 Normal Saline IV 999 mls/hr STAT HUE Administration Discontinued Medications Generic Name Dose Route Start Last Admin Trade Name Freq PRN Reason Stop Dose Admin Ondansetron HCl 8 mg 10/18/17 20:07 10/18/17 20:33 Zofran IVPUSH 10/18/17 20:08 8 mg ONETIME ONE Administration Departure - Departure Time of Disposition: 21:26 Disposition: Home, Self-Care 01 Condition: Good Clinical Impression: Spasm of lumbar paraspinous muscle, Anxiety, Cholelithiasis - Discharge Information Referrals: Cole Mallory MD [Primary Care Provider] - Forms: ED Department Discharge Additional Instructions: Continue medication as directed Return if symptoms persist or worsen Follow-up with general surgery concerning the gallstones/cholelithiasis Follow-up with primary care as needed in the interim [facility] - Primary Care [address] [place] [id number] [facility] - General Surgery Professional Building [address] [place] [address], [address] [place] [address] The following information is given to patients seen in the emergency department who are being discharged to home. This information is to outline your options for follow-up care. We provide all patients seen in our emergency department with a follow-up referral. The need for follow-up, as well as the timing and circumstances, are variable depending upon the specifics of your emergency department visit. If you don't have a primary care physician on staff, we will provide you with a referral. We always advise you to contact your personal physician following an emergency department visit to inform them of the circumstance of the visit and for follow-up with them and/or the need for any referrals to a consulting specialist. The emergency department will also refer you to a specialist when appropriate. This referral assures that you have the opportunity for follow-up care with a specialist. All of these measure are taken in an effort to provide you with optimal care, which includes your follow-up. Under all circumstances we always encourage you to contact your private physician who remains a resource for coordinating your care. When calling for follow-up care, please make the office aware that this follow-up is from your recent emergency room visit. If for any reason you are refused follow-up, please contact the [facility] emergency department at and asked to speak to the emergency department charge nurse. - My Orders Last 24 Hours: My Active Orders 10/18/17 20:14 Chest 1V Frontal [CR] Stat 10/18/17 20:15 Sodium Chloride 0.9% [Normal Saline] 500 ml IV STAT 10/18/17 20:33 EKG Documentation Completion [RC] STAT - Assessment/Plan Last 24 Hours: My Active Orders 10/18/17 20:14 Chest 1V Frontal [CR] Stat 10/18/17 20:15 Sodium Chloride 0.9% [Normal Saline] 500 ml IV STAT 10/18/17 20:33 EKG Documentation Completion [RC] STAT
[2017-10-18 21:01] LABS: CHLORIDE,CL 108 mmol/L (98-110); SODIUM,NA 139 mmol/L (136-146)
--- NOTE | 2017-10-19 14:08 | CR ---
EXAM DATE: 10/18/17 PATIENT'S AGE: 27 Patient: LOBO QUINTERO Facility: [place], [place] Site . Site : 1990 Study: XRay Chest [id number]/[id number] 9:35:07 PM Ordering Physician: Ha Betancourt Final Report: INDICATION: dizzy, rt sided chest pain, sob TECHNIQUE: PA chest film submitted. COMPARISON: None. FINDINGS: Heart size and pulmonary vasculature within normal limits. Lung villareal are clear. IMPRESSION: No active disease. Dictated by Charlie Bentley MD @ 10/18/2017 9:47:53 PM Dictated by: Charlie Bentley MD @ 10/18/2017 21:48:00 (Electronic Signature) Report Signed by Proxy. [facility] HOSPITALCyndi
== END 2017-10-18 21:49 | disposition home or self-care (01) ==
LOC: MW.ED 19:46
DX: K80.20 Calculus of gallbladder without cholecystitis without obstruction (principal); F41.9 Anxiety disorder, unspecified; M62.830 Muscle spasm of back; Z79.899 Other long term (current) drug therapy
CPT/HCPCS: 36415; 71045; 80053; 80305; 81001; 81025; 82550; 82553; 84484; 85025; 87804; 96374; 99284; J2405; J7040

== ENCOUNTER 2017-10-31 06:31 | Day surgery (SDC) | payer BC, OTHER ==
[~2017-10-31 06:31] MED LIST: Lactated Ringers 1,000 ML IV SCH; ceFAZolin 2 GM in Premix Bag 1 BAG IV ONE
[2017-10-31] MEDS ORDERED: Scopolamine 1.5 MG Transdermal Patch TRDERM PRN (07:12)
--- NOTE | 2017-10-31 07:15 | PCM.PREANE ---
Preanesthetic Assessment - Anesthesia/Transfusion/Family Hx Anesthesia History: Prior Anesthesia Without Reaction Family History of Anesthesia Reaction: No Transfusion History: No Prior Transfusion(s) Intubation History: Unknown - Review of Systems General: No Symptoms Pulmonary: No Symptoms Cardiovascular: No Symptoms Gastrointestinal: Abdominal Pain Neurological: No Symptoms Other: Reports: None - Physical Assessment O2 Sat by Pulse Oximetry: 97 Respiratory Rate: 16 Vital Signs: Last Vital Signs Temp 36 C 10/31/17 06:39 Pulse 68 10/31/17 06:39 Resp 16 10/31/17 06:39 BP 114/58 L 10/31/17 06:39 Pulse Ox 97 10/31/17 06:39 Height: 1.7 m Weight: 91.626 kg ASA Class: 2 Mental Status: Alert & Oriented x3 Airway Class: Mallampati = 1 Dentition: Reports: Normal Dentition Thyro-Mental Finger Breadths: 3 Mouth Opening Finger Breadths: 3 ROM/Head Extension: Full Lungs: Clear to Auscultation, Normal Respiratory Effort Cardiovascular: Regular Rate, Regular Rhythm - Lab Values: Laboratory Last Values Urine HCG, Qual NEGATIVE (NEGATIVE) 10/31/17 05:34 - Allergies Allergies/Adverse Reactions: Allergies Allergy/AdvReac Type Severity Reaction Status Date / Time No Known Allergies Allergy Verified 10/25/17 15:50 - Blood Blood Available: No - Anesthesia Plan Pre-Op Medication Ordered: None - Acknowledgements Anesthesia Type Planned: General Anesthesia Pt an Appropriate Candidate for the Planned Anesthesia: Yes Alternatives and Risks of Anesthesia Discussed w Pt/Guardian: Yes Pt/Guardian Understands and Agrees with Anesthesia Plan: Yes PreAnesthesia Questionnaire HEENT History: Reports: None Other HEENT History: wears glasses Cardiovascular History: Reports: Heart Murmur Other Cardiovascular History: states had murmur as a child Respiratory History: Reports: Asthma Other Respiratory History: exercised induced asthma, does not use inhaler Gastrointestinal History: Reports: Cholelithiasis, GERD Genitourinary History: Reports: None 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: Musculoskeletal History: Reports: Fracture Other Musculoskeletal History: hx of fx wrist Neurological History: Reports: Head Trauma Psychiatric History: Reports: Anxiety Endocrine/Metabolic History: Reports: Obesity/BMI 30+ Hematologic History: Reports: None Immunologic History: Reports: None Oncologic (Cancer) History: Reports: None Dermatologic History: Reports: Eczema - Infectious Disease History Infectious Disease History: Reports: None - Past Surgical History HEENT Surgical History: Reports: Oral Surgery Other HEENT Surgeries/Procedures: wisdom teeth GI Surgical History: Reports: None Female Surgical History: Reports: D&C, Tubal Ligation - SUBSTANCE USE Smoking Status *Q: Never Smoker Tobacco Use Within Last Twelve Months: No Recreational Drug Use History: No - HOME MEDS Home Medications: Home Meds LORazepam 1 mg PO DAILY PRN 10/18/17 [History] Hydrocodone/Acetaminophen [Hydrocodon-Acetaminophen 5-325] 1 tab PO Q4H PRN [History] Ondansetron 4 mg PO Q8H PRN 10/25/17 [History] Ranitidine HCl 150 mg PO DAILY 10/25/17 [History] traMADol [Ultram] 50 mg PO ASDIRECTED PRN 10/25/17 [History] - CURRENT (IN HOUSE) MEDS Current Meds: Current Medications Lactated Ringer's (Ringers, Lactated) 1,000 mls @ 125 mls/hr IV ASDIRECTED [facility] Last Admin: 10/31/17 06:45 Dose: 125 mls/hr Discontinued Medications Cefazolin Sodium/Dextrose 2 gm (/ Premix) 50 mls @ 100 mls/hr IV ONETIME ONE Stop: 10/31/17 05:29
[2017-10-31] MEDS ORDERED: Succinylcholine/Normal Saline 200 MG/10 ML Syringe ONE (07:25)
[2017-10-31] MEDS ORDERED: Rocuronium 10 MG/ML 10 ML Syringe ONE (07:25)
[2017-10-31] MEDS ORDERED: fentaNYL 250 MCG/5 ML SDV ONE (07:25)
[2017-10-31] MEDS ORDERED: Ondansetron 4 MG/2 ML SDV ONE ×2 (07:25→12:30)
[2017-10-31] MEDS ORDERED: Propofol 200 MG/20 ML SDV ONE (07:25)
[2017-10-31] MEDS ORDERED: Bupivacaine 25%/EPINEPHrine/PF 30 ML ONE (07:25)
[2017-10-31] MEDS ORDERED: Dexamethasone 4 MG/ML 5 ML MDV ONE (07:25)
[2017-10-31] MEDS ORDERED: ceFAZolin/Dextrose,Iso-Osmotic 2 GM/50 ML Duplex Bag IV ONE (07:25)
[2017-10-31] MEDS ORDERED: Acetaminophen/oxyCODONE 325-7.5 MG Tab PO ONE (07:36)
[2017-10-31] MEDS ORDERED: Octyl 2-Cyanoacrylate 1 Tube ONE (07:49)
[2017-10-31] MEDS ORDERED: Lidocaine 2% 5 ML SDV ONE (08:01)
[2017-10-31] MEDS ORDERED: HYDROmorphone 2 MG/ML SDV ONE (08:14)
[2017-10-31] MEDS ORDERED: ePHEDrine 50 MG/ML SDV ONE (08:24)
[2017-10-31] MEDS ORDERED: fentaNYL 100 MCG/2 ML SDV IVPUSH PRN (08:38)
--- NOTE | 2017-10-31 09:33 | PCM.OPNOTE ---
- General Post-Op/Procedure Note Date of Surgery/Procedure: 10/31/17 Operative Procedure(s): 1) lap laly 2) peritoneal deposit biopsy Findings: gb distended, and yellow and green, wall is not thickened, cs chronic and acute cholecystitis; large 1.5cm stones, 6+; [id number] Pre Op Diagnosis: acute and chronic cholecystitis Post-Op Diagnosis: Same Anesthesia Technique: General ET Tube Primary Surgeon: Dimitry Weiner Pathology: sent Complications: None Condition: Good
[2017-10-31] MEDS ORDERED: Ondansetron 4 MG/2 ML SDV IVPUSH ONE (12:26)
[2017-10-31 12:46] VITALS: BP 114/65
--- NOTE | 2017-11-01 08:46 | OR ---
SURGEON: Dimitry Weiner MD DATE OF PROCEDURE: 10/31/2017 PREOPERATIVE DIAGNOSIS: Chronic and acute cholecystitis. POSTOPERATIVE DIAGNOSIS: Chronic and acute cholecystitis. PROCEDURE PERFORMED: Laparoscopic cholecystectomy. COMPLICATIONS: None. FINDINGS: Gallbladder is distended and yellow and green and consistent with chronic and acute cholecystitis. Large stones, some of them about 1.5 cm, all 6 of them. Wall was not thickened. Incidental finding of a piece of like a pellet, about 6 x 4 mm, extra body in the peritoneum and will remove and send for pathology. PROCEDURE NOTE: The patient was taken to the operating room and placed in the supine position. After the intubation of general endotracheal anesthesia, the patient's abdomen was prepped and draped in the usual sterile fashion. Using Xendoview, a 12 mm trocar was placed supraumbilically and then followed with pneumoperitoneum. A 5 mm trocar was placed in the epigastrium and two 5 mm trocars placed in the right upper quadrant. The placement of the last three trocars was done under direct video supervision. Upon gaining entrance to the abdominal cavity, an extensive examination was then performed. The gallbladder was located and identified and retracted to the dome of the liver at the triangle of Calot. The cystic duct was clipped three more times and then using the endoscopic clip, was transected with placement of the endoscopic clip and transection was performed with care, ensuring the posterior prong of the instruments were clearly visualized prior to exercising the procedure. The gallbladder was dissected using electrocautery out of the liver bed and then removed using endoscopic bag through the umbilical site. The gallbladder was removed en bloc and there was no bile spillage and this was then followed with extensive irrigation until the bile was clear from blood and bile. The trocars were then removed under direct video supervision. The 12 mm umbilical site was then closed with deep stitches using 0 Vicryl followed with proximal stitches using 3-0 Vicryl and Dermabond. The other three trocar sites were closed with 3-0 Vicryl followed with approximation of skin with Dermabond. The patient was then awakened and extubated and transferred to the recovery room in hemodynamically stable condition. At the conclusion of the surgery, before closing the abdominal wound, instrument count and sponge count were done and were correct. The patient tolerated the procedure well and there were no intraoperative complications. Dr. Weiner was present through the whole procedure. Just before surgery, a timeout was called. The patient was identified and procedure identified and procedure started. After gallbladder was removed and noted to have an extra piece of 6 x 4 like a pellet was floating in the peritoneum and was retrieved and sent for pathology. ANGIE CARRION /[id number]
== END 2017-10-31 13:20 | disposition home or self-care (01) ==
LOC: MW.SDS 06:31
PROVIDERS: ATTEND Surgery
DX: K80.10 Calculus of gallbladder with chronic cholecystitis without obstruction (principal); Z79.899 Other long term (current) drug therapy; Z98.51 Tubal ligation status
CPT/HCPCS: 47562; 81025; A9270; J0690; J1100; J1170; J2405; J3010; J7120; 00790; 88304; J2704

== ENCOUNTER 2018-01-12 22:43 | Emergency (ER) | payer BC, OTHER ==
[2018-01-12] MEDS ORDERED: Albuterol/Ipratropium 3.0-0.5 MG/3 ML Neb Soln NEB ONE (22:46)
[2018-01-12] MEDS ORDERED: methylPREDNISolone Sodium Succinate 125 MG/2 ML SDV IM ONE (22:46)
--- NOTE | 2018-01-12 23:38 | EDM.PDOC ---
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 Past medical history: As per history of present illness and as reviewed below otherwise noncontributory. Surgical history: As per history of present illness and as reviewed below otherwise noncontributory. Social history: No reported history of drug or alcohol abuse. Family history: As per history of present illness and as reviewed below otherwise noncontributory. Physical exam: HEENT: Atraumatic, normocephalic, pupils reactive, negative for conjunctival pallor or scleral icterus, mucous membranes moist, throat clear, neck supple, nontender, trachea midline. Lungs: Clear to auscultation, breath sounds equal bilaterally, chest nontender. Heart: S1S2, regular, negative for clicks, rubs, or JVD. Abdomen: Soft, nondistended, nontender. Negative for masses or hepatosplenomegaly. Negative for costovertebral tenderness. Pelvis: Stable nontender. Genitourinary: Deferred. Rectal: Deferred. Extremities: Atraumatic, negative for cords or calf pain. Neurovascular unremarkable. Neuro: Awake, alert, oriented. Cranial nerves II through XII unremarkable. Cerebellum unremarkable. Motor and sensory unremarkable throughout. Exam nonfocal. Diagnostics: [Chest 2 views ] Therapeutics: [DuoNeb Solu-Medrol 125 mg IM ] HFA Medrol Dosepak Z-Diogo Impression: [ acute bronchitis Chronic history of baseline] Definitive disposition and diagnosis as appropriate pending reevaluation and review of above. 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: Musculoskeletal History: Reports: Fracture Other Musculoskeletal History: hx of fx wrist Neurological History: Reports: Head Trauma Psychiatric History: Reports: Anxiety Endocrine/Metabolic History: Reports: Obesity/BMI 30+ Hematologic History: Reports: None Immunologic History: Reports: None Oncologic (Cancer) History: Reports: None Dermatologic History: Reports: Eczema - Infectious Disease History Infectious Disease History: Reports: Chicken Pox - Past Surgical History HEENT Surgical History: Reports: Oral Surgery Other HEENT Surgeries/Procedures: wisdom teeth GI Surgical History: Reports: Cholecystectomy Female Surgical History: Reports: D&C, Tubal Ligation Social & Family History - Family History Family Medical History: Noncontributory Cardiac: Reports: Other (See Below) Other Cardiac Family History: Patient states mother's side of family may have issues, she would have to ask her. Endocrine/Metabolic: Reports: Diabetes, type II - Tobacco Use Smoking Status *Q: Never Smoker - Caffeine Use Caffeine Use: Reports: Coffee - Recreational Drug Use Recreational Drug Use: Yes Drug Use in Last 12 Months: No Recreational Drug Type: Reports: Marijuana/Hashish ED ROS GENERAL - Review of Systems Review Of Systems: ROS reveals no pertinent complaints other than HPI. ED EXAM, GENERAL - Physical Exam Exam: See Below Course - Vital Signs Last Recorded V/S: Last Vital Signs Temp 97.1 F 01/12/18 22:54 Pulse 79 01/12/18 22:54 Resp 16 01/12/18 22:54 BP 121/74 01/12/18 22:54 Pulse Ox 100 01/12/18 22:54 - Orders/Labs/Meds Orders: Active Orders 24 hr Category Date Time Status RT Aerosol Therapy [RC] ASDIRECTED Care 01/12/18 22:47 Active Chest 2V [CR] Stat Exams 01/12/18 22:46 Taken Meds: Medications Discontinued Medications Generic Name Dose Route Start Last Admin Trade Name Freq PRN Reason Stop Dose Admin Albuterol/Ipratropium 3 ml 01/12/18 22:46 01/12/18 23:54 Duoneb 3.0-0.5 Mg/3 Ml NEB 01/12/18 22:47 3 ml ONETIME ONE Administration Methylprednisolone Sodium Succinate 125 mg 01/12/18 22:46 01/12/18 23:54 Solu-Medrol IM 01/12/18 22:47 125 mg ONETIME ONE Administration Departure - Departure Time of Disposition: 00:06 Disposition: Home, Self-Care 01 Condition: Good Clinical Impression: Bronchitis - Discharge Information Referrals: PCP,None [Primary Care Provider] - Forms: ED Department Discharge Additional Instructions: The following information is given to patients seen in the emergency department who are being discharged to home. This information is to outline your options for follow-up care. We provide all patients seen in our emergency department with a follow-up referral. The need for follow-up, as well as the timing and circumstances, are variable depending upon the specifics of your emergency department visit. If you don't have a primary care physician on staff, we will provide you with a referral. We always advise you to contact your personal physician following an emergency department visit to inform them of the circumstance of the visit and for follow-up with them and/or the need for any referrals to a consulting specialist. The emergency department will also refer you to a specialist when appropriate. This referral assures that you have the opportunity for follow-up care with a specialist. All of these measure are taken in an effort to provide you with optimal care, which includes your follow-up. Under all circumstances we always encourage you to contact your private physician who remains a resource for coordinating your care. When calling for follow-up care, please make the office aware that this follow-up is from your recent emergency room visit. If for any reason you are refused follow-up, please contact the [facility] emergency department at and asked to speak to the emergency department charge nurse. - My Orders Last 24 Hours: My Active Orders 01/12/18 22:46 Chest 2V [CR] Stat 01/12/18 22:47 RT Aerosol Therapy [RC] ASDIRECTED - Assessment/Plan Last 24 Hours: My Active Orders 01/12/18 22:46 Chest 2V [CR] Stat 01/12/18 22:47 RT Aerosol Therapy [RC] ASDIRECTED
[2018-01-13 01:14] VITALS: BP 118/69
--- NOTE | 2018-01-15 10:06 | CR ---
EXAM DATE: 01/12/18 PATIENT'S AGE: 27 Patient: LOBO CIFUENTES Facility: [place], [place] Site . Site : 1990 Study: XRay Chest [id number]/18/2018 11:51:06 PM Ordering Physician: Doctor Landrum Final Report: INDICATION: Shortness of breath TECHNIQUE: Chest radiograph 2 views COMPARISON: 10/18/2017. FINDINGS: Cardiovascular and mediastinum: The heart silhouette is normal in size and morphology. The mediastinum is normal in appearance. Lungs and pleural spaces: Both lungs are unremarkable in appearance. No sign of pleural effusion seen. No pneumothorax is identified. Bones and soft tissues: No significant findings. IMPRESSION: 1. Negative chest. Dictated by Selwyn Delgado MD @ 01/12/2018 11:57:20 PM Dictated by: Selwyn Delgado MD @ 01/12/2018 23:57:23 (Electronic Signature) Report Signed by Proxy. [facility]ITAL[facility]yn[facility]
== END 2018-01-13 00:29 | disposition home or self-care (01) ==
LOC: MW.ED 22:43
DX: J20.9 Acute bronchitis, unspecified (principal); K21.9 Gastro-esophageal reflux disease without esophagitis; J45.909 Unspecified asthma, uncomplicated; F41.9 Anxiety disorder, unspecified; E66.9 Obesity, unspecified; Z79.899 Other long term (current) drug therapy; Z68.29 Body mass index [BMI] 29.0-29.9, adult
CPT/HCPCS: 71046; 94640; 96372; 99284; J2930; 99283

== ENCOUNTER 2018-01-17 20:35 | Emergency (ER) | payer BC, OTHER ==
[2018-01-17] MEDS ORDERED: Ketorolac 30 MG/ML SDV IVPUSH ONE (20:41)
[2018-01-17] MEDS ORDERED: Sodium Chloride 0.9% 1,000 ML IV ONE (20:41)
--- NOTE | 2018-01-17 21:25 | EDM.PDOC ---
ED HPI GENERAL MEDICAL PROBLEM - General Chief Complaint: Chest Pain Stated Complaint: SHORTNESS OF BREATH/DIZZY Time Seen by Provider: 01/17/18 20:41 Source of Information: Reports: Patient History Limitations: Reports: No Limitations - History of Present Illness INITIAL COMMENTS - FREE TEXT/NARRATIVE: HISTORY AND PHYSICAL: History of present illness: Patient is a 27-year-old female who presents to the emergency room with complaints of chest pain and hyperventilation. She recently was diagnosed with bronchitis and placed on a Z-Diogo and Medrol Dosepak. Today she started to experience dyspnea and midsternal chest pain which led her to increased anxiety and hyperventilation. She states she felt dizzy, and did take her prescribed Ativan prior to arrival which seemed to help alleviate some of her symptoms. She denies any fever, chills, abdominal pain, nausea, vomiting, diarrhea or constipation. Review of systems: As per history of present illness and below otherwise all systems reviewed and negative. Past medical history: As per history of present illness and as reviewed below otherwise noncontributory. Surgical history: As per history of present illness and as reviewed below otherwise noncontributory. Social history: No reported history of drug or alcohol abuse. Family history: As per history of present illness and as reviewed below otherwise noncontributory. Physical exam: General: Well-developed and well-nourished 19 H old female. Alert and oriented. Nontoxic appearing and in no acute distress. HEENT: Atraumatic, normocephalic, pupils equal and reactive bilaterally, negative for conjunctival pallor or scleral icterus, mucous membranes moist, throat clear, neck supple, nontender, trachea midline. No drooling or trismus noted. No meningeal signs Lungs: Clear to auscultation, breath sounds equal bilaterally, chest nontender. Heart: S1S2, regular rate and rhythm without overt murmur Abdomen: Soft, nondistended, nontender. Negative for masses or hepatosplenomegaly. Negative for costovertebral tenderness. Pelvis: Stable nontender. Genitourinary: Deferred. Rectal: Deferred. Skin: Intact, warm, dry. No lesions or rashes noted. Extremities: Atraumatic, negative for cords or calf pain. Neurovascular unremarkable. Neuro: Awake, alert, oriented. Cranial nerves II through XII unremarkable. Cerebellum unremarkable. Motor and sensory unremarkable throughout. Exam nonfocal. Notes: Chest x-ray shows no sign of infiltrate or pneumonia. Lab work is unremarkable. Diagnostics: CBC, CMP, CXR, troponin Therapeutics: Solumedrol, Duo Neb Impression: Chest Pain, non-specific Plan: 1. Continue to take your medications as prescribed. 2. Follow up with your primary care provider in the next 1-2 days. Follow up in the ED as needed and as discussed. Definitive disposition and diagnosis as appropriate pending reevaluation and review of above. Onset: Today chest/throat Pain Score (Numeric/FACES): 4 - Related Data Allergies Allergy/AdvReac Type Severity Reaction Status Date / Time No Known Allergies Allergy Verified 01/17/18 20:41 Home Meds: Home Meds LORazepam 1 mg PO DAILY PRN 10/18/17 [History] Past Medical History HEENT History: Reports: None Other HEENT History: wears glasses Cardiovascular History: Reports: Heart Murmur Other Cardiovascular History: states had murmur as a child Respiratory History: Reports: Asthma Other Respiratory History: exercised induced asthma, does not use inhaler Gastrointestinal History: Reports: Cholelithiasis, GERD Genitourinary History: Reports: None 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: Musculoskeletal History: Reports: Fracture Other Musculoskeletal History: hx of fx wrist Neurological History: Reports: Head Trauma Psychiatric History: Reports: Anxiety Endocrine/Metabolic History: Reports: Obesity/BMI 30+ Hematologic History: Reports: None Immunologic History: Reports: None Oncologic (Cancer) History: Reports: None Dermatologic History: Reports: Eczema - Infectious Disease History Infectious Disease History: Reports: Chicken Pox - Past Surgical History HEENT Surgical History: Reports: Oral Surgery Other HEENT Surgeries/Procedures: wisdom teeth GI Surgical History: Reports: Cholecystectomy Female Surgical History: Reports: D&C, Tubal Ligation Social & Family History - Family History Family Medical History: Noncontributory Cardiac: Reports: Other (See Below) Other Cardiac Family History: Patient states mother's side of family may have issues, she would have to ask her. Endocrine/Metabolic: Reports: Diabetes, type II - Tobacco Use Smoking Status *Q: Never Smoker - Caffeine Use Caffeine Use: Reports: Coffee - Recreational Drug Use Recreational Drug Use: No ED ROS GENERAL - Review of Systems Review Of Systems: ROS reveals no pertinent complaints other than HPI. ED EXAM, GENERAL - Physical Exam Exam: See Below (See dictation) Course - Vital Signs Last Recorded V/S: Last Vital Signs Temp 97.5 F 01/17/18 20:42 Pulse 80 01/17/18 20:42 Resp 24 H 01/17/18 20:42 BP 139/65 01/17/18 20:42 Pulse Ox 100 01/17/18 20:42 - Orders/Labs/Meds Orders: Active Orders 24 hr Category Date Time Status EKG Documentation Completion [RC] STAT Care 01/17/18 20:41 Active RT Aerosol Therapy [RC] ASDIRECTED Care 01/17/18 21:30 Ordered Chest 2V [CR] Stat Exams 01/17/18 20:41 Taken Albuterol/Ipratropium [DuoNeb 3.0-0.5 MG/3 ML] Med 01/17/18 21:30 Once 3 ml NEB ONETIME ONE Sodium Chloride 0.9% [Normal Saline] 1,000 ml Med 01/17/18 20:41 Stop Req IV STAT methylPREDNISolone Sod Succ [Solu-MEDROL] Med 01/17/18 21:30 Once 125 mg IVPUSH ONETIME ONE Medication Orders Sodium Chloride (Normal Saline) 1,000 mls @ 999 mls/hr IV STAT ONE Stop: 01/17/18 21:41 Labs: Laboratory Tests 01/17/18 01/17/18 Range/Units 20:53 20:53 WBC 12.53 H (4.0-11.0) K/uL RBC 4.43 (4.30-5.90) M/uL Hgb 12.8 (12.0-16.0) g/dL Hct 36.4 (36.0-46.0) % MCV 82.2 (80.0-98.0) fL MCH 28.9 (27.0-32.0) pg MCHC 35.2 (31.0-37.0) g/dL RDW Std Deviation 40.1 (28.0-62.0) fl RDW Coeff of Placido 13 (11.0-15.0) % Plt Count 314 (150-400) K/uL MPV 9.50 (7.40-12.00) fL Neut % (Auto) 54.9 (48.0-80.0) % Lymph % (Auto) 37.9 (16.0-40.0) % Titus % (Auto) 6.3 (0.0-15.0) % Eos % (Auto) 0.7 (0.0-7.0) % Baso % (Auto) 0.2 (0.0-1.5) % Neut # (Auto) 6.9 H (1.4-5.7) K/uL Lymph # (Auto) 4.8 H (0.6-2.4) K/uL Titus # (Auto) 0.8 (0.0-0.8) K/uL Eos # (Auto) 0.1 (0.0-0.7) K/uL Baso # (Auto) 0.0 (0.0-0.1) K/uL Nucleated RBC % 0.0 /100WBC Nucleated RBCs # 0 K/uL Sodium 139 (136-145) mmol/L Potassium 3.4 L (3.5-5.1) mmol/L Chloride 104 (98-107) mmol/L Carbon Dioxide 22.4 (21.0-32.0) mmol/L BUN 24 H (7.0-18.0) mg/dL Creatinine 0.9 (0.6-1.0) mg/dL Est Cr Clr Drug Dosing TNP Estimated GFR (MDRD) > 60.0 ml/min Glucose 99 (74-106) mg/dL Calcium 8.9 (8.5-10.1) mg/dL Total Bilirubin 0.3 (0.2-1.0) mg/dL AST 12 L (15-37) IU/L ALT 32 (14-63) IU/L Alkaline Phosphatase 100 (46-116) U/L Troponin I < 0.050 (0.000-0.056) ng/mL Total Protein 7.4 (6.4-8.2) g/dL Albumin 3.9 (3.4-5.0) g/dL Globulin 3.5 (2.0-3.5) g/dL Albumin/Globulin Ratio 1.1 L (1.3-2.8) Meds: Medications Generic Name Dose Route Start Last Admin Trade Name Freq PRN Reason Stop Dose Admin Sodium Chloride 1,000 mls @ 999 mls/hr 01/17/18 20:41 Normal Saline IV 05/23/18 21:41 STAT ONE Discontinued Medications Generic Name Dose Route Start Last Admin Trade Name Steven PRN Reason Stop Dose Admin Ketorolac Tromethamine 30 mg 01/17/18 20:41 Toradol IVPUSH 01/17/18 20:42 ONETIME ONE Departure - Departure Time of Disposition: 21:31 Disposition: Home, Self-Care 01 Clinical Impression: Nonspecific chest pain - Discharge Information Referrals: PCP,None [Primary Care Provider] - Forms: ED Department Discharge Additional Instructions: The following information is given to patients seen in the emergency department who are being discharged to home. This information is to outline your options for follow-up care. We provide all patients seen in our emergency department with a follow-up referral. The need for follow-up, as well as the timing and circumstances, are variable depending upon the specifics of your emergency department visit. If you don't have a primary care physician on staff, we will provide you with a referral. We always advise you to contact your personal physician following an emergency department visit to inform them of the circumstance of the visit and for follow-up with them and/or the need for any referrals to a consulting specialist. The emergency department will also refer you to a specialist when appropriate. This referral assures that you have the opportunity for follow-up care with a specialist. All of these measure are taken in an effort to provide you with optimal care, which includes your follow-up. Under all circumstances we always encourage you to contact your private physician who remains a resource for coordinating your care. When calling for follow-up care, please make the office aware that this follow-up is from your recent emergency room visit. If for any reason you are refused follow-up, please contact the [facility] Emergency Department at and asked to speak to the emergency department charge nurse. [facility] Primary Care [address] [place] [id number] 1. Continue to take your medication as prescribed. 2. Follow-up with your primary caregiver in the next 1-2 days. Return to the ED as needed and as discussed. - My Orders Last 24 Hours: My Active Orders 01/17/18 20:41 EKG Documentation Completion [RC] STAT Chest 2V [CR] Stat Sodium Chloride 0.9% [Normal Saline] 1,000 ml IV STAT 01/17/18 21:30 RT Aerosol Therapy [RC] ASDIRECTED Albuterol/Ipratropium [DuoNeb 3.0-0.5 MG/3 ML] 3 ml NEB ONETIME ONE methylPREDNISolone Sod Succ [Solu-MEDROL] 125 mg IVPUSH ONETIME ONE - Assessment/Plan Last 24 Hours: My Active Orders 01/17/18 20:41 EKG Documentation Completion [RC] STAT Chest 2V [CR] Stat Sodium Chloride 0.9% [Normal Saline] 1,000 ml IV STAT 01/17/18 21:30 RT Aerosol Therapy [RC] ASDIRECTED Albuterol/Ipratropium [DuoNeb 3.0-0.5 MG/3 ML] 3 ml NEB ONETIME ONE methylPREDNISolone Sod Succ [Solu-MEDROL] 125 mg IVPUSH ONETIME ONE
[2018-01-17 21:26] LABS: CHLORIDE,CL 104 mmol/L (98-107); SODIUM,NA 139 mmol/L (136-145)
[2018-01-17] MEDS ORDERED: methylPREDNISolone Sodium Succinate 125 MG/2 ML SDV IVPUSH ONE (21:30)
[2018-01-17] MEDS ORDERED: Albuterol/Ipratropium 3.0-0.5 MG/3 ML Neb Soln NEB ONE (21:30)
[2018-01-17] MEDS ORDERED: methylPREDNISolone Sodium Succinate 125 MG/2 ML SDV IM ONE (21:45)
[2018-01-17 22:19] VITALS: BP 116/57
--- NOTE | 2018-01-18 12:42 | CR ---
EXAM DATE: 01/17/18 PATIENT'S AGE: 27 Patient: LOBO CIFUENTES Facility: [place], [place] Site . Site : 1990 Study: XRay Chest [id number]/23/2018 9:12:39 PM Ordering Physician: Doctor Landrum Final Report: INDICATION: Cough and chest pain. TECHNIQUE: Chest 2 views COMPARISON: 01/12/2018 FINDINGS: Cardiovascular and mediastinum: Heart size and vasculature are normal in caliber and appearance. Lungs and pleural spaces: Lungs are clear. No sign of infiltrate or mass. No sign of pleural effusion. No pneumothorax. Bones and soft tissues: No significant findings. IMPRESSION: Normal chest. No sign of infiltrate. Dictated by Jerry Zheng MD @ Jan 17 2018 9:21PM (Electronic Signature) Report Signed by Proxy. [facility]ITAL[facility]yn[facility]
== END 2018-01-17 22:20 | disposition home or self-care (01) ==
LOC: MW.ED 20:35
DX: R07.9 Chest pain, unspecified (principal); F41.9 Anxiety disorder, unspecified; Z79.899 Other long term (current) drug therapy
CPT/HCPCS: 36415; 71046; 80053; 84484; 85025; 93005; 94640; 96372; 99285; J2930

== ENCOUNTER 2019-08-07 18:13 | Emergency (ER) | payer BC ==
[2019-08-07] MEDS ORDERED: Sodium Chloride 0.9% 10 ML Syringe FLUSH PRN (18:26)
[2019-08-07] MEDS ORDERED: Sodium Chloride 0.9% 2.5 ML Syringe FLUSH PRN (18:26)
--- NOTE | 2019-08-07 18:26 | EDM.PDOC ---
<Gregory Morales - Last Filed: 08/07/19 18:57> ED HPI GENERAL MEDICAL PROBLEM - General Chief Complaint: Abdominal Pain Stated Complaint: ABDOMINAL PAIN Time Seen by Provider: 08/07/19 18:26 Source of Information: Reports: Patient History Limitations: Reports: No Limitations - History of Present Illness INITIAL COMMENTS - FREE TEXT/NARRATIVE: HISTORY AND PHYSICAL: History of present illness: Patient is a 29-year-old female presents to the ED with complaint right lower abdominal pain. She states it started this morning and has gotten worse in the last couple of hours. She states the pain comes and goes. She has had similar pain in the past and had a pelvic US done about 10 days ago that was unremarkable. She denies fevers, chills, nausea, vomiting. She reports having diarrhea but states this is due to taking miralax. Review of systems: As per history of present illness and below otherwise all systems reviewed and negative. Past medical history: As per history of present illness and as reviewed below otherwise noncontributory. Surgical history: As per history of present illness and as reviewed below otherwise noncontributory. Social history: No reported history of drug or alcohol abuse. Family history: As per history of present illness and as reviewed below otherwise noncontributory. Physical exam: General: Patient sitting comfortably in no acute distress and nontoxic appearing HEENT: Atraumatic, normocephalic, pupils reactive, negative for conjunctival pallor or scleral icterus, mucous membranes moist, throat clear, neck supple, nontender, trachea midline. No meningeal signs. Lungs: Clear to auscultation, breath sounds equal bilaterally, chest nontender. Heart: S1S2, regular, negative for clicks, rubs, or overt murmur. Abdomen: RLQ tenderness to palpation. Soft, nondistended. Negative for masses or hepatosplenomegaly. Negative for costovertebral tenderness. No rigidity, rebound, guarding. Pelvis: Stable nontender. Genitourinary: Deferred. Rectal: Deferred. Extremities: Atraumatic, negative for cords or calf pain. Neurovascular unremarkable. Neuro: Awake, alert, oriented. Cranial nerves II through XII unremarkable. Cerebellum unremarkable. Motor and sensory unremarkable throughout. Exam nonfocal. Notes: Diagnostics: [] Therapeutics: [] Prescriptions: Impression: [] Plan: [] Definitive disposition and diagnosis as appropriate pending reevaluation and review of above. RLQ/back Pain Score (Numeric/FACES): 10 - Related Data Allergies Allergy/AdvReac Type Severity Reaction Status Date / Time No Known Allergies Allergy Verified 08/31/18 09:10 Home Meds: Home Meds LORazepam 1 mg PO DAILY PRN 10/18/17 [History] Albuterol Sulfate [Proair Hfa] 1 - 2 puff INH ASDIRECTED PRN 08/31/18 [History] Bifidobacter. 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: Musculoskeletal History: Reports: Fracture Other Musculoskeletal History: hx of fx wrist Neurological History: Reports: None Psychiatric History: Reports: Anxiety Endocrine/Metabolic History: Reports: Obesity/BMI 30+ Hematologic History: Reports: None Immunologic History: Reports: None Oncologic (Cancer) History: Reports: None Dermatologic History: Reports: Eczema - Infectious Disease History Infectious Disease History: Reports: Chicken Pox - Past Surgical History Head Surgeries/Procedures: Reports: None HEENT Surgical History: Reports: Oral Surgery Other HEENT Surgeries/Procedures: wisdom teeth GI Surgical History: Reports: Cholecystectomy Female Surgical History: Reports: D&C, Tubal Ligation Social & Family History - Family History Family Medical History: Noncontributory Cardiac: Reports: Other (See Below) Other Cardiac Family History: Patient states mother's side of family may have issues, she would have to ask her. Endocrine/Metabolic: Reports: Diabetes, type II - Caffeine Use Caffeine Use: Reports: Coffee ED ROS GENERAL - Review of Systems Review Of Systems: Comprehensive ROS is negative, except as noted in HPI. ED EXAM, GI/ABD - Physical Exam Exam: See Below (see dictation) Course - Vital Signs Last Recorded V/S: Last Vital Signs Temp 36.1 C 08/07/19 18:26 Pulse 100 08/07/19 18:26 Resp 24 H 08/07/19 18:26 BP 135/75 08/07/19 18:26 Pulse Ox 100 08/07/19 18:26 - Orders/Labs/Meds Orders: Active Orders 24 hr Category Date Time Status Sodium Chloride 0.9% [Saline Flush] Med 08/07/19 18:26 Active 10 ml FLUSH ASDIRECTED PRN Sodium Chloride 0.9% [Saline Flush] Med 08/07/19 18:26 Active 2.5 ml FLUSH ASDIRECTED PRN Saline Lock Insert [OM.PC] Stat Oth 08/07/19 18:27 Ordered Medication Orders Sodium Chloride (Saline Flush) 10 ml FLUSH ASDIRECTED PRN PRN Reason: Keep Vein Open Sodium Chloride (Saline Flush) 2.5 ml FLUSH ASDIRECTED PRN PRN Reason: Keep Vein Open Labs: Laboratory Tests 08/07/19 08/07/19 08/07/19 Range/Units 18:35 18:35 19:51 WBC 7.81 (4.0-11.0) K/uL RBC 4.39 (4.30-5.90) M/uL Hgb 11.7 L (12.0-16.0) g/dL Hct 35.2 L (36.0-46.0) % MCV 80.2 (80.0-98.0) fL MCH 26.7 L (27.0-32.0) pg MCHC 33.2 (31.0-37.0) g/dL RDW Std Deviation 43.2 (28.0-62.0) fl RDW Coeff of [place] 15 (11.0-15.0) % Plt Count 308 (150-400) K/uL MPV 9.60 (7.40-12.00) fL Neut % (Auto) 51.7 (48.0-80.0) % Lymph % (Auto) 40.5 H (16.0-40.0) % [place] % (Auto) 5.1 (0.0-15.0) % Eos % (Auto) 2.3 (0.0-7.0) % Baso % (Auto) 0.4 (0.0-1.5) % Neut # (Auto) 4.0 (1.4-5.7) K/uL Lymph # (Auto) 3.2 H (0.6-2.4) K/uL [place] # (Auto) 0.4 (0.0-0.8) K/uL Eos # (Auto) 0.2 (0.0-0.7) K/uL Baso # (Auto) 0.0 (0.0-0.1) K/uL Nucleated RBC % 0.0 /100WBC Nucleated RBCs # 0 K/uL Sodium 140 (136-145) mmol/L Potassium 3.4 L (3.5-5.1) mmol/L Chloride 105 (98-107) mmol/L Carbon Dioxide 24.1 (21.0-32.0) mmol/L BUN 13 (7.0-18.0) mg/dL Creatinine 0.8 (0.6-1.0) mg/dL Est Cr Clr Drug Dosing 103.73 mL/min Estimated GFR (MDRD) > 60.0 ml/min Glucose 99 (74-106) mg/dL Calcium 9.1 (8.5-10.1) mg/dL Total Bilirubin 0.2 (0.2-1.0) mg/dL AST 17 (15-37) IU/L ALT 36 (14-63) IU/L Alkaline Phosphatase 84 (46-116) U/L Total Protein 7.8 (6.4-8.2) g/dL Albumin 4.0 (3.4-5.0) g/dL Globulin 3.8 (2.6-4.0) g/dL Albumin/Globulin Ratio 1.1 (0.9-1.6) Urine Color YELLOW Urine Appearance CLEAR Urine pH 7.0 (5.0-8.0) Ur Specific [place] 1.015 (1.001-1.035) Urine Protein NEGATIVE (NEGATIVE) mg/dL Urine Glucose (UA) NEGATIVE (NEGATIVE) mg/dL Urine Ketones NEGATIVE (NEGATIVE) mg/dL Urine Occult Blood NEGATIVE (NEGATIVE) Urine Nitrite NEGATIVE (NEGATIVE) Urine Bilirubin NEGATIVE (NEGATIVE) Urine Urobilinogen 0.2 (<2.0) EU/dL Ur Leukocyte Esterase NEGATIVE (NEGATIVE) Meds: Medications Generic Name Dose Route Start Last Admin Trade Name Freq PRN Reason Stop Dose Admin Sodium Chloride 10 ml 08/07/19 18:26 Saline Flush FLUSH ASDIRECTED PRN Keep Vein Open Sodium Chloride 2.5 ml 08/07/19 18:26 Saline Flush FLUSH ASDIRECTED PRN Keep Vein Open Discontinued Medications Generic Name Dose Route Start Last Admin Trade Name Skyq PRN Reason Stop Dose Admin Sodium Chloride 1,000 mls @ 999 mls/hr 08/07/19 18:40 08/07/19 18:47 Normal Saline IV 08/07/19 19:40 999 mls/hr STAT ONE Administration Iopamidol 100 ml 08/07/19 19:48 08/07/19 19:48 Isovue-370 (76%) IVPUSH 08/07/19 19:49 100 ml ONETIME ONE Administration Ketorolac Tromethamine 30 mg 08/07/19 18:40 08/07/19 18:47 Toradol IVPUSH 08/07/19 18:41 30 mg ONETIME ONE Administration Morphine Sulfate 2 mg 08/07/19 19:10 08/07/19 19:19 Morphine IVPUSH 08/07/19 19:11 2 mg ONETIME ONE Administration Morphine Sulfate Confirm 08/07/19 19:10 08/07/19 19:20 Morphine Administered 08/07/19 19:11 Not Given Dose 2 mg .ROUTE .STK-MED ONE Ondansetron HCl 4 mg 08/07/19 19:10 08/07/19 19:20 Zofran IVPUSH 08/07/19 19:11 4 mg ONETIME ONE Administration Ondansetron HCl Confirm 08/07/19 19:10 08/07/19 19:20 Zofran Administered 08/07/19 19:11 Not Given Dose 4 mg .ROUTE .STK-MED ONE Departure - Departure Disposition: Home, Self-Care 01 Clinical Impression: Abdominal pain - Discharge Information Referrals: Cole Mallory MD [Primary Care Provider] - Forms: ED Department Discharge Additional Instructions: The following information is given to patients seen in the emergency department who are being discharged to home. This information is to outline your options for follow-up care. We provide all patients seen in our emergency department with a follow-up referral. The need for follow-up, as well as the timing and circumstances, are variable depending upon the specifics of your emergency department visit. If you don't have a primary care physician on staff, we will provide you with a referral. We always advise you to contact your personal physician following an emergency department visit to inform them of the circumstance of the visit and for follow-up with them and/or the need for any referrals to a consulting specialist. The emergency department will also refer you to a specialist when appropriate. This referral assures that you have the opportunity for followup care with a specialist. All of these measure are taken in an effort to provide you with optimal care, which includes your followup. Under all circumstances we always encourage you to contact your private physician who remains a resource for coordinating your care. When calling for followup care, please make the office aware that this follow-up is from your recent emergency room visit. If for any reason you are refused follow-up, please contact the [facility] emergency department at and asked to speak to the emergency department charge nurse. [facility] Specialty Care - General Surgery Professional Building [address] [place] [address], [address] [place] [address] [facility] Primary Care - Women's Health [address] [place] [id number] Follow-up Gen. 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 Patient was offered admission for observation and declines Departure - Departure Time of Disposition: 21:43 Condition: Good Sepsis Event Note - Focused Exam Date Exam was Performed: 08/07/19 Time Exam was Performed: 21:42
[2019-08-07] MEDS: Ketorolac 30 MG/ML SDV IVPUSH ONE (18:47)
[2019-08-07] MEDS: Sodium Chloride 0.9% 1,000 ML IV ONE (18:47)
[2019-08-07 19:10] LABS: BLOOD UREA NITROGEN,BUN 13 mg/dL (7.0-18.0); CARBON DIOXIDE,CO2 24.1 mmol/L (21.0-32.0); CHLORIDE,CL 105 mmol/L (98-107); GLUCOSE RANDOM 99 mg/dL (74-106); POTASSIUM,K 3.4 mmol/L (3.5-5.1); SODIUM,NA 140 mmol/L (136-145)
[2019-08-07] MEDS: Morphine 2 MG/ML Syringe IVPUSH ONE (19:19)
[2019-08-07] MEDS: Ondansetron 4 MG/2 ML SDV IVPUSH ONE (19:20)
[2019-08-07] MEDS: Ondansetron 4 MG/2 ML SDV ONE (19:20)
[2019-08-07] MEDS: Morphine 2 MG/ML Syringe ONE (19:20)
[2019-08-07] MEDS: Iopamidol 755 Mg/ML 100 ML Bottle IVPUSH ONE (19:48)
--- NOTE | 2019-08-07 20:13 | CT ---
INDICATION: Right lower quadrant pain. COMPARISON: Ultrasound of the right upper quadrant from 07/30/2018 TECHNIQUE: CT examination of the abdomen and pelvis was performed with the uneventful intravenous administration of 100 cc of Isovue 370 while 3 mm thick axial sections were obtained from the lung bases through the pubic symphysis. Oral contrast was not administered. Please note that all CT scans at this facility use dose modulation, iterative reconstruction, and/or weight-based dosing when appropriate to reduce radiation dose to as low as reasonably achievable. FINDINGS: In the abdomen, the liver, spleen, pancreas, and adrenals are normal in appearance. The kidneys are normal in appearance. Clips are seen in the gall bladder fossa from cholecystectomy. The abdominal aorta is normal in caliber with no sign of dilatation. There is no sign of retroperitoneal mass or adenopathy. The stomach, loops of small bowel, and colon in the abdomen are normal in appearance. In the pelvis, the appendix is normal in appearance with no sign of inflammatory process. The loops of small bowel and colon in the pelvis are normal in appearance. The uterus and adnexal regions are normal in appearance. There is a surgical clip in the right adnexal region suggesting tubal ligation. A clip is not seen on the left. The urinary bladder is normal in appearance. There is no sign of pelvic or inguinal mass or adenopathy. The lung bases are clear. The osseous structures are normal in appearance for the patient`s age. IMPRESSION: Nothing seen to explain the patient`s right lower quadrant pain. Normal appearance of the appendix. No sign of any abnormality of the right urinary system. No sign of any abnormality of the right adnexal regions. CT of the abdomen shows changes of cholecystectomy, consistent with the appearance on the recent ultrasound of the right upper quadrant. Normal CT of the pelvis with contrast. Please note that all CT scans at this facility use dose modulation, iterative reconstruction, and/or weight-based dosing when appropriate to reduce radiation dose to as low as reasonably achievable. Dictated by Delano Singh MD @ Aug 07 2019 8:06PM Signed by Dr. Delano Singh @ Aug 07 2019 8:11PM
--- NOTE | 2019-08-07 21:09 | US ---
Indication: Right lower quadrant pain. Rule out ovarian torsion. Technique: Transvaginal ultrasound was performed. Comparison: CT scan of the abdomen and pelvis from earlier today. Ultrasound of the pelvis dated October 15, 2018. Findings: The uterus measures 6.6 x 3.8 x 5.6 cm in size. The endometrial stripe measures 3.0 mm in size. No uterine masses are identified. The right ovary measures 2.4 x 2.3 x 1.4 cm in size. The left ovary measures 2.5 x 1.9 x 2.1 cm in size. Follicles are identified bilaterally. Normal color flow is identified to both the right and the left ovary. No free fluid is identified within the pelvis. Impression: Essentially normal ultrasound of the pelvis. Dictated by Patricia Gee MD @ Aug 07 2019 9:04PM Signed by Dr. Patricia Gee @ Aug 07 2019 9:07PM
[2019-08-07 22:09] VITALS: BP 106/68; PULSE 62
== END 2019-08-07 22:00 | disposition home or self-care (01) ==
LOC: MW.ED 18:13
DX: R10.31 Right lower quadrant pain (principal); J45.909 Unspecified asthma, uncomplicated; F41.9 Anxiety disorder, unspecified; E66.9 Obesity, unspecified; Z68.30 Body mass index [BMI] 30.0-30.9, adult; Z90.49 Acquired absence of other specified parts of digestive tract; Z79.899 Other long term (current) drug therapy
CPT/HCPCS: 36415; 74177; 76830; 80053; 81003; 85025; 96361; 96374; 96375; 99284; J1885; J2270; J2405; J7030; Q9967; 99283

== ENCOUNTER 2019-10-08 17:29 | Emergency (ER) | payer BC ==
[2019-10-08] MEDS ORDERED: Albuterol/Ipratropium 3.0-0.5 MG/3 ML Neb Soln NEB ONE (17:42)
--- NOTE | 2019-10-08 17:42 | EDM.PDOC ---
ED HPI GENERAL MEDICAL PROBLEM - General Chief Complaint: Respiratory Problem Stated Complaint: SHORTNESS OF BREATH Time Seen by Provider: 10/08/19 17:36 Source of Information: Reports: Patient History Limitations: Reports: No Limitations - History of Present Illness INITIAL COMMENTS - FREE TEXT/NARRATIVE: Patient is a 29-year-old female who is complaining of having dyspnea with exertion this been going on for several weeks. Patient was seen by her PCP 2 weeks ago and started on a Z-Diogo and prednisone without any relief of her symptoms. She did not have a chest x-ray but was told that she had pneumonia. Patient does have a nonproductive cough currently. Not having any fever or chills. She denies any chest pressure or diaphoresis. Patient is not nauseous has not been vomiting. She denies any bloody or tarry looking stools. She has no swelling to her ankles or calfs. Patient is not a cigarette smoker. She has no previous history of any lung disease other than the above. Onset: Gradual Duration: Week(s): (two), Waxing/Waning Location: Reports: Chest Severity: Mild Improves with: Reports: None Worsens with: Reports: Movement Context: Reports: Activity - Related Data Allergies Allergy/AdvReac Type Severity Reaction Status Date / Time No Known Allergies Allergy Verified 10/08/19 17:32 Home Meds: Home Meds LORazepam 1 mg PO DAILY PRN 10/18/17 [History] Albuterol Sulfate [Proair Hfa] 1 - 2 puff INH ASDIRECTED PRN 08/31/18 [History] Bifidobacter. 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: Musculoskeletal History: Reports: Fracture Other Musculoskeletal History: hx of fx wrist Neurological History: Reports: None Psychiatric History: Reports: Anxiety Endocrine/Metabolic History: Reports: Obesity/BMI 30+ Hematologic History: Reports: None Immunologic History: Reports: None Oncologic (Cancer) History: Reports: None Dermatologic History: Reports: Eczema - Infectious Disease History Infectious Disease History: Reports: Chicken Pox - Past Surgical History Head Surgeries/Procedures: Reports: None HEENT Surgical History: Reports: Oral Surgery Other HEENT Surgeries/Procedures: wisdom teeth GI Surgical History: Reports: Cholecystectomy Female Surgical History: Reports: D&C, Tubal Ligation Social & Family History - Family History Family Medical History: Noncontributory Cardiac: Reports: Other (See Below) Other Cardiac Family History: Patient states mother's side of family may have issues, she would have to ask her. Endocrine/Metabolic: Reports: Diabetes, type II - Caffeine Use Caffeine Use: Reports: Coffee ED ROS GENERAL - Review of Systems Review Of Systems: Comprehensive ROS is negative, except as noted in HPI. ED EXAM, GENERAL - Physical Exam Exam: See Below Free Text/Narrative:: Exam: See Below Exam Limited By: No Limitations Head: Atraumatic Neck: Normal Inspection. No: Carotid Bruit, Lymphadenopathy (R) Respiratory/Chest: No Respiratory Distress, Lungs Clear, Normal Breath Sounds, No Accessory Muscle Use. No: Chest Non-Tender Cardiovascular: Normal Peripheral Pulses, Regular Rate, Rhythm, No Edema, No JVD GI/Abdominal: Normal Bowel Sounds, Tender. No: Non-Tender, Splenomegaly Back Exam: Normal Inspection. No: CVA Tenderness (R) Extremities: Normal Inspection. No: No Pedal Edema Neurological: Alert, Oriented, Normal Cognition Psychiatric: Normal Affect Skin Exam: Warm Lymphatic: No Adenopathy Course - Vital Signs Text/Narrative:: Patient's d-dimer and troponin are negative. Her other labs are unremarkable. Patient is feeling lightheaded with standing so I have given her a liter of IV fluid. Patient did not desat with ambulation. She is feeling better with lorazepam. Discharging her home at this time. I recommend she follow-up with her PCP if her symptoms continue. She should return to emergency department symptoms are worse. Last Recorded V/S: Last Vital Signs Temp 36.6 C 10/08/19 17:30 Pulse 68 10/08/19 19:00 Resp 16 10/08/19 19:00 BP 108/71 10/08/19 19:00 Pulse Ox 100 10/08/19 19:00 - Orders/Labs/Meds Orders: Active Orders 24 hr Category Date Time Status EKG 12 Lead [EKG Documentation Completion] [RC] STAT Care 10/08/19 17:37 Active RT Aerosol Therapy [RC] ASDIRECTED Care 10/08/19 17:43 Active Sodium Chloride 0.9% [Normal Saline] 1,000 ml Med 10/08/19 18:44 Active IV .BOLUS Sodium Chloride 0.9% [Saline Flush] Med 10/08/19 18:45 Active 10 ml FLUSH ASDIRECTED PRN Sodium Chloride 0.9% [Saline Flush] Med 10/08/19 18:45 Active 2.5 ml FLUSH ASDIRECTED PRN Saline Lock Insert [OM.PC] Stat Oth 10/08/19 18:45 Ordered Medication Orders Sodium Chloride (Normal Saline) 1,000 mls @ 999 mls/hr IV .BOLUS ONE Stop: 10/08/19 19:44 Last Admin: 10/08/19 19:00 Dose: 999 mls/hr Sodium Chloride (Saline Flush) 10 ml FLUSH ASDIRECTED PRN PRN Reason: Keep Vein Open Sodium Chloride (Saline Flush) 2.5 ml FLUSH ASDIRECTED PRN PRN Reason: Keep Vein Open Labs: Laboratory Tests 10/08/19 10/08/19 10/08/19 Range/Units 17:35 17:35 17:35 WBC 10.33 (4.0-11.0) K/uL RBC 4.53 (4.30-5.90) M/uL Hgb 12.4 (12.0-16.0) g/dL Hct 36.9 (36.0-46.0) % MCV 81.5 (80.0-98.0) fL MCH 27.4 (27.0-32.0) pg MCHC 33.6 (31.0-37.0) g/dL RDW Std Deviation 43.7 (28.0-62.0) fl RDW Coeff of Placido 15 (11.0-15.0) % Plt Count 317 (150-400) K/uL MPV 9.70 (7.40-12.00) fL Neut % (Auto) 77.9 (48.0-80.0) % Lymph % (Auto) 19.5 (16.0-40.0) % [place] % (Auto) 2.5 (0.0-15.0) % Eos % (Auto) 0.0 (0.0-7.0) % Baso % (Auto) 0.1 (0.0-1.5) % Neut # (Auto) 8.1 H (1.4-5.7) K/uL Lymph # (Auto) 2.0 (0.6-2.4) K/uL [place] # (Auto) 0.3 (0.0-0.8) K/uL Eos # (Auto) 0.0 (0.0-0.7) K/uL Baso # (Auto) 0.0 (0.0-0.1) K/uL Nucleated RBC % 0.0 /100WBC Nucleated RBCs # 0 K/uL D-Dimer, Quantitative 0.22 (0.0-0.50) mg/L FEU Sodium 141 (136-145) mmol/L Potassium 3.6 (3.5-5.1) mmol/L Chloride 103 (98-107) mmol/L Carbon Dioxide 24.0 (21.0-32.0) mmol/L BUN 13 (7.0-18.0) mg/dL Creatinine 0.8 (0.6-1.0) mg/dL Est Cr Clr Drug Dosing 103.73 mL/min Estimated GFR (MDRD) > 60.0 ml/min Glucose 107 H (74-106) mg/dL Calcium 9.6 (8.5-10.1) mg/dL Total Bilirubin 0.3 (0.2-1.0) mg/dL AST 14 L (15-37) IU/L ALT 34 (14-63) IU/L Alkaline Phosphatase 65 (46-116) U/L Troponin I < 0.050 (0.000-0.056) ng/mL Total Protein 7.9 (6.4-8.2) g/dL Albumin 4.3 (3.4-5.0) g/dL Globulin 3.6 (2.6-4.0) g/dL Albumin/Globulin Ratio 1.2 (0.9-1.6) Meds: Medications Generic Name Dose Route Start Last Admin Trade Name Freq PRN Reason Stop Dose Admin Sodium Chloride 1,000 mls @ 999 mls/hr 10/08/19 18:44 10/08/19 19:00 Normal Saline IV 10/08/19 19:44 999 mls/hr .BOLUS ONE Administration Sodium Chloride 10 ml 10/08/19 18:45 Saline Flush FLUSH ASDIRECTED PRN Keep Vein Open Sodium Chloride 2.5 ml 10/08/19 18:45 Saline Flush FLUSH ASDIRECTED PRN Keep Vein Open Discontinued Medications Generic Name Dose Route Start Last Admin Trade Name Skyq PRN Reason Stop Dose Admin Albuterol/Ipratropium 3 ml 10/08/19 17:42 10/08/19 17:55 Duoneb 3.0-0.5 Mg/3 Ml NEB 10/08/19 17:43 3 ml ONETIME ONE Administration Lorazepam 1 mg 10/08/19 17:43 10/08/19 17:53 Ativan PO 10/08/19 17:44 1 mg ONETIME ONE Administration Prednisone 40 mg 10/08/19 17:43 10/08/19 17:52 Prednisone PO 10/08/19 17:44 40 mg ONETIME ONE Administration Departure - Departure Time of Disposition: 19:10 Disposition: Home, Self-Care 01 Condition: Good Clinical Impression: Dyspnea, Anxiety - Discharge Information Instructions: Shortness of Breath, Adult, [id number] Referrals: PCP,Unknown [Primary Care Provider] - Forms: ED Department Discharge Additional Instructions: Return to emergency department if symptoms are worse. Follow-up with PCP if symptoms continue. Lorazepam if needed. Care Plan Goals: The following information is given to patients seen in the emergency department who are being discharged to home. This information is to outline your options for follow-up care. We provide all patients seen in our emergency department with a follow-up referral. The need for follow-up, as well as the timing and circumstances, are variable depending upon the specifics of your emergency department visit. If you don't have a primary care physician on staff, we will provide you with a referral. We always advise you to contact your personal physician following an emergency department visit to inform them of the circumstance of the visit and for follow-up with them and/or the need for any referrals to a consulting specialist. The emergency department will also refer you to a specialist when appropriate. This referral assures that you have the opportunity for follow-up care with a specialist. All of these measure are taken in an effort to provide you with optimal care, which includes your follow-up. Under all circumstances we always encourage you to contact your private physician who remains a resource for coordinating your care. When calling for follow-up care, please make the office aware that this follow-up is from your recent emergency room visit. If for any reason you are refused follow-up, please contact the [facility] Emergency Department at and asked to speak to the emergency department charge nurse. Sepsis Event Note - Evaluation Sepsis Screening Result: No Definite Risk - Focused Exam Vital Signs: Vital Signs Temp Pulse Resp BP Pulse Ox 10/08/19 19:00 68 16 108/71 100 10/08/19 17:30 36.6 C 73 20 131/79 100 Date Exam was Performed: 10/08/19 Time Exam was Performed: 19:06 - My Orders Last 24 Hours: My Active Orders 10/08/19 17:37 EKG 12 Lead [EKG Documentation Completion] [RC] STAT 10/08/19 17:43 RT Aerosol Therapy [RC] ASDIRECTED 10/08/19 18:44 Sodium Chloride 0.9% [Normal Saline] 1,000 ml IV .BOLUS 10/08/19 18:45 Sodium Chloride 0.9% [Saline Flush] 10 ml FLUSH ASDIRECTED PRN Sodium Chloride 0.9% [Saline Flush] 2.5 ml FLUSH ASDIRECTED PRN Saline Lock Insert [OM.PC] Stat - Assessment/Plan Last 24 Hours: My Active Orders 10/08/19 17:37 EKG 12 Lead [EKG Documentation Completion] [RC] STAT 10/08/19 17:43 RT Aerosol Therapy [RC] ASDIRECTED 10/08/19 18:44 Sodium Chloride 0.9% [Normal Saline] 1,000 ml IV .BOLUS 10/08/19 18:45 Sodium Chloride 0.9% [Saline Flush] 10 ml FLUSH ASDIRECTED PRN Sodium Chloride 0.9% [Saline Flush] 2.5 ml FLUSH ASDIRECTED PRN Saline Lock Insert [OM.PC] Stat
[2019-10-08] MEDS ORDERED: LORazepam 1 MG Tab PO ONE (17:43)
[2019-10-08] MEDS ORDERED: predniSONE 20 MG Tab PO ONE (17:43)
[2019-10-08 18:12] LABS: BLOOD UREA NITROGEN,BUN 13 mg/dL (7.0-18.0); CHLORIDE,CL 103 mmol/L (98-107); GLUCOSE RANDOM 107 mg/dL (74-106); POTASSIUM,K 3.6 mmol/L (3.5-5.1); SODIUM,NA 141 mmol/L (136-145)
[2019-10-08] MEDS ORDERED: Sodium Chloride 0.9% 1,000 ML IV ONE (18:44)
[2019-10-08] MEDS ORDERED: Sodium Chloride 0.9% 2.5 ML Syringe FLUSH PRN (18:45)
[2019-10-08] MEDS ORDERED: Sodium Chloride 0.9% 10 ML Syringe FLUSH PRN (18:45)
[2019-10-08 19:02] VITALS: BP 108/71; PULSE 68
== END 2019-10-08 19:45 | disposition home or self-care (01) ==
LOC: MW.ED 17:29
DX: R06.00 Dyspnea, unspecified (principal); F41.9 Anxiety disorder, unspecified; E66.9 Obesity, unspecified; Z98.890 Other specified postprocedural states; J45.909 Unspecified asthma, uncomplicated; Z98.51 Tubal ligation status; Z90.49 Acquired absence of other specified parts of digestive tract
CPT/HCPCS: 80053; 84484; 85025; 85379; 93005; 94640; 96360; 99285; A9270; J7030; 99282; J7620-GY

== ENCOUNTER 2020-06-16 14:04 | Emergency (ER) | payer BC, OTHER ==
[2020-06-16] MEDS ORDERED: Dexamethasone 10 MG/ML SDV PO STA (14:33)
--- NOTE | 2020-06-16 14:39 | EDM.PDOC ---
ED HPI GENERAL MEDICAL PROBLEM - General Chief Complaint: Respiratory Problem Stated Complaint: COVID Time Seen by Provider: 06/16/20 14:08 Source of Information: Reports: Patient History Limitations: Reports: No Limitations - History of Present Illness INITIAL COMMENTS - FREE TEXT/NARRATIVE: HISTORY AND PHYSICAL: History of present illness: Patient is a 30-year-old female who presents to the ED today with concern of Covid symptoms. Patient states that she was seen at [facility] yesterday and was tested and positive for Covid. Patient states yesterday that her Covid symptoms were mostly nasal congestion and a mild sore throat. Patient states that she feels as if her symptoms "traveled down her throat and into her chest ". Patient states that she does have a history of exercise-induced asthma so has an inhaler at home that she is used one time this morning. Patient states that she feels anxious about her Covid symptoms moving to her chest and states that she has been "coughing up yellow mucus" and feels anxious about this. She states that she does have a pulse oximeter at home and has been monitoring her oxygen and states that it has been consistently around 99% at home. Denies any other symptoms or concerns. Patient denies fever, chills, chest pain. Denies headache, neck stiff ness, change in vision, syncope, or near syncope. Denies nausea, vomiting, abdominal pain, diarrhea, constipation, or dysuria. Has not noted any blood in urine or stool. Patient has been eating and drinking appropriately. Review of systems: As per history of present illness and below otherwise all systems reviewed and negative. Past medical history: As per history of present illness and as reviewed below otherwise noncontributory. Surgical history: As per history of present illness and as reviewed below otherwise noncontributory. Social history: See social history for further information Family history: As per history of present illness and as reviewed below otherwise noncontributory. Physical exam: General: Patient is alert, oriented, and in no acute distress. Patient sitting comfortably on exam table, mildly anxious appearing. HEENT: Atraumatic, normocephalic, pupils equal and reactive bilaterally, negative for conjunctival pallor or scleral icterus, mucous membranes moist, TMs normal bilaterally, throat clear, neck supple, nontender, trachea midline. No drooling or trismus noted. No meningeal signs. No hot potato voice noted. Lungs: Patient speaking clearly without breathlessness, no wheezing or stridor, no accessory muscle use or respiratory distress. Auscultation deferred due to current COV-ID 19 outbreak. Heart: Auscultation deferred due to current COV-ID 19 outbreak. Abdomen: nondistended. Negative for masses or hepatosplenomegaly. Negative for costovertebral tenderness. Pelvis: Stable nontender. Genitourinary: Deferred. Rectal: Deferred. Skin: Intact, warm, dry. No lesions or rashes noted. Extremities: Atraumatic, negative for cords or calf pain. Neurovascular unremarkable. Neuro: Awake, alert, oriented. Cranial nerves II through XII unremarkable. Cerebellum unremarkable. Motor and sensory unremarkable throughout. Exam nonfocal. Notes: Signs and symptoms that would prompt return to the ED thoroughly discussed with patient. Self quarantine for Covid infection discussed with patient. Patient does have a pulse oximeter at home and thoroughly discussed monitoring oxygen saturation. Discussed importance for follow-up with a primary care provider for reevaluation after self quarantine guidelines. Voices understanding and is agreeable to plan of care. Denies any further questions or concerns at this time. Diagnostics: None Therapeutics: Decadron 6mg PO Prescription: None Impression: COVID-19 Asthma, mild Anxiety Plan: 1. Your vital signs and oxygen saturation are well enough that you were able to monitor your symptoms at home. Continue to monitor for trouble breathing, new confusion or inability to arouse, bluish lips or face or any of the other symptoms we discussed -if this occurs please return to the emergency room. 2. Please self quarantine over the next 2 weeks. Use your pulse oximeter to monitor oxygen as discussed. 3. Use your at home inhaler as prescribed and as discussed. You can take NyQuil during the evening to help get a restful night sleep. 4. You may alternate Tylenol and ibuprofen as needed for pain and fever management. 5. Follow up with your primary care provider for re-evaluation and re-testing after the 2 week quarantine and discuss when you should be seen. Definitive disposition and diagnosis as appropriate pending reevaluation and review of above. - Related Data Allergies Allergy/AdvReac Type Severity Reaction Status Date / Time No Known Allergies Allergy Verified 06/16/20 14:15 Home Meds: Home Meds Albuterol Sulfate [Proair Hfa] 1 - 2 puff INH ASDIRECTED PRN 08/31/18 [History] Bifidobacter. 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: Musculoskeletal History: Reports: Fracture Other Musculoskeletal History: hx of fx wrist Neurological History: Reports: None Psychiatric History: Reports: Anxiety, Depression Endocrine/Metabolic History: Reports: Obesity/BMI 30+ Hematologic History: Reports: None Immunologic History: Reports: None Oncologic (Cancer) History: Reports: None Dermatologic History: Reports: Eczema - Infectious Disease History Infectious Disease History: Reports: Chicken Pox, Shingles - Past Surgical History Head Surgeries/Procedures: Reports: None HEENT Surgical History: Reports: Oral Surgery Other HEENT Surgeries/Procedures: wisdom teeth Other Cardiovascular Surgeries/Procedures: 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 GI Surgical History: Reports: Cholecystectomy Female Surgical History: Reports: D&C, Tubal Ligation Social & Family History - Family History Family Medical History: Noncontributory Cardiac: Reports: Other (See Below) Other Cardiac Family History: Patient states mother's side of family may have issues, she would have to ask her. Endocrine/Metabolic: Reports: Diabetes, type II - Tobacco Use Tobacco Use Status *Q: Never Tobacco User - Caffeine Use Caffeine Use: Reports: Coffee - Recreational Drug Use Recreational Drug Use: No ED ROS GENERAL - Review of Systems Review Of Systems: Comprehensive ROS is negative, except as noted in HPI. ED EXAM, GENERAL - Physical Exam Exam: See Below (see dictation) Course - Vital Signs Last Recorded V/S: Last Vital Signs Temp 97.7 F 06/16/20 14:12 Pulse 83 06/16/20 14:25 Resp 18 10/20/20 14:12 BP 113/77 06/16/20 14:12 Pulse Ox 99 06/16/20 14:25 - Orders/Labs/Meds Meds: Medications Discontinued Medications Generic Name Dose Route Start Last Admin Trade Name Steven PRN Reason Stop Dose Admin Dexamethasone 6 mg 06/16/20 14:33 Dexamethasone PO 06/16/20 14:34 NOW STA Departure - Departure Time of Disposition: 14:33 Disposition: Home, Self-Care 01 Clinical Impression: COVID-19, Anxiety Asthma Qualifiers: Asthma severity: mild Asthma persistence: unspecified Asthma complication type: unspecified Qualified Code(s): J45.909 - Unspecified asthma, uncomplicated - Discharge Information Referrals: PCP,None [Primary Care Provider] - Forms: ED Department Discharge Additional Instructions: The following information is given to patients seen in the emergency department who are being discharged to home. This information is to outline your options for follow-up care. We provide all patients seen in our emergency department with a follow-up referral. The need for follow-up, as well as the timing and circumstances, are variable depending upon the specifics of your emergency department visit. If you don't have a primary care physician on staff, we will provide you with a referral. We always advise you to contact your personal physician following an emergency department visit to inform them of the circumstance of the visit and for follow-up with them and/or the need for any referrals to a consulting specialist. The emergency department will also refer you to a specialist when appropriate. This referral assures that you have the opportunity for follow-up care with a specialist. All of these measure are taken in an effort to provide you with optimal care, which includes your follow-up. Under all circumstances we always encourage you to contact your private physician who remains a resource for coordinating your care. When calling for follow-up care, please make the office aware that this follow-up is from your recent emergency room visit. If for any reason you are refused follow-up, please contact the [facility] Emergency Department at and asked to speak to the emergency department charge nurse. [facility] [address] [place] [id number] [facility] [address] [place] [address] 1. Your vital signs and oxygen saturation are well enough that you were able to monitor your symptoms at home. Continue to monitor for trouble breathing, new confusion or inability to arouse, bluish lips or face or any of the other symptoms we discussed -if this occurs please return to the emergency room. 2. Please self quarantine over the next 2 weeks. Use your pulse oximeter to monitor oxygen as discussed. 3. Use your at home inhaler as prescribed and as discussed. You can take NyQuil during the evening to help get a restful night sleep. 4. You may alternate Tylenol and ibuprofen as needed for pain and fever management. 5. Follow up with your primary care provider for re-evaluation and re-testing after the 2 week quarantine and discuss when you should be seen. Sepsis Event Note (ED) - Evaluation Sepsis Screening Result: No Definite Risk - Focused Exam Vital Signs: Vital Signs Temp Pulse Resp BP Pulse Ox 06/16/20 14:25 83 99 06/16/20 14:20 75 98 06/16/20 14:12 97.7 F 84 18 113/77 97
[2020-06-16] MEDS ORDERED: Dexamethasone 4 MG Tab ONE (14:44)
[2020-06-16] MEDS ORDERED: Dexamethasone 4 MG Tab PO ONE (14:45)
[2020-06-16 15:05] VITALS: BP 106/60; PULSE 63
== END 2020-06-16 15:00 | disposition home or self-care (01) ==
LOC: MW.ED 14:04
DX: U07.1 COVID-19 (principal); J45.909 Unspecified asthma, uncomplicated; F41.9 Anxiety disorder, unspecified; E66.9 Obesity, unspecified
CPT/HCPCS: 99283; J8540

== ENCOUNTER 2021-04-23 02:42 | Emergency (ER) | payer BC ==
[2021-04-23] MEDS ORDERED: diphenhydrAMINE 50 MG Cap PO ONE (03:39)
--- NOTE | 2021-04-23 03:41 | EDM.PDOC ---
ED HPI GENERAL MEDICAL PROBLEM - General Chief Complaint: Allergic Reaction Stated Complaint: FACIAL SWELLING AFTER 2ND COVID SHOT TODAY Time Seen by Provider: 04/23/21 02:43 - History of Present Illness INITIAL COMMENTS - FREE TEXT/NARRATIVE: History of present illness: [] The patient reports of facial swelling left eye has blurry vision. It started 1 hour ago. This morning at 11 AM she got a COVID-19 vaccine. She has no other new exposures. Patient did not have a reaction of the first vaccine. The patient muscle aches and cough as well. She feels warm. She has been exposed in the workplace to someone who has active COVID-19 infection. Patient has exercise-induced asthma. Review of systems: As per history of present illness and below otherwise all systems reviewed and negative. Past medical history: As per history of present illness and as reviewed below otherwise noncontributory. Surgical history: As per history of present illness and as reviewed below otherwise noncontributory. Social history: No reported history of drug or alcohol abuse. Family history: As per history of present illness and as reviewed below otherwise noncontributory. Physical exam: Constitutional - well developed, well-nourished and in no acute distress HEENT -mild edema around the face. No stridor. No trismus. Normal voice. Normocephalic, no evidence of trauma - external nose and mouth normal - no mass in neck and no JVD - mucosae moist EYES -mild edema around the eyelids. Full EOM, PERRL, no icterus - no evidence of inflammation, injection, or drainage Respiratory - no respiratory distress, equal bilateral expansion, lungs clear to auscultation and no abnormal lung sounds Cardiovascular - Regular Rhythm with S1 and S2 appreciated and no murmur, gallop or rub. GI - abdomen soft without distension or organomegaly - normal bowel sounds - no guard or rebound Musculoskeletal no gross deformity of long bones or joints - no tenderness, swelling or edema Neurologic - Alert and oriented times four - CN II-XII grossly intact - motor sensory and coordination symmetrically normal Psychiatric - appropriate mood and affect with normal thought content Hematologic - No petechiae or purpura - mucosa appropriate color and sclera not pale - normal nail bed color and refill Integument - no rash or evidence of trauma - normal turgor Diagnostics: [] Therapeutics: [] Impression: [] Plan: [] Definitive disposition and diagnosis as appropriate pending reevaluation and review of above. - Related Data Allergies Allergy/AdvReac Type Severity Reaction Status Date / Time No Known Allergies Allergy Verified 04/23/21 03:07 Home Meds: Home Meds Albuterol Sulfate [Proair Hfa] 1 - 2 puff INH ASDIRECTED PRN 08/31/18 [History] Bifidobacter. Bifidum/B.Longum [Florajen Bifidoblend] 1 tab PO DAILY 08/31/18 [History] Guaifenesin/Pseudoephedrne HCl [Mucinex D ER Tablet] 1 tab PO ASDIRECTED PRN 08/31/18 [History] LORazepam [Ativan] 1 mg PO Q6H PRN #7 tab 10/08/19 [Rx] Past Medical History HEENT History: Other HEENT History: wears glasses Cardiovascular History: Reports: Heart Murmur Other Cardiovascular History: states had murmur as a child Respiratory History: Reports: Asthma Other Respiratory History: exercised induced asthma, Gastrointestinal History: Reports: GERD Genitourinary History: Reports: None [employer] PROFESS[employer] History: Reports: Musculoskeletal History: Reports: Fracture Other Musculoskeletal History: hx of fx wrist Neurological History: Reports: None Psychiatric History: Reports: Anxiety, Depression Endocrine/Metabolic History: Reports: Obesity/BMI 30+ 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 GI Surgical History: Reports: Cholecystectomy Female Surgical History: Reports: D&C, Tubal Ligation Social & Family History - Family History Family Medical History: No Pertinent Family History Cardiac: Reports: Other (See Below) Other Cardiac Family History: Patient states mother's side of family may have issues, she would have to ask her. Endocrine/Metabolic: Reports: Diabetes, type II - Caffeine Use Caffeine Use: Reports: Tea - Recreational Drug Use Recreational Drug Use: No ED ROS ALLERGIC REACTION - Review of Systems Review Of Systems: Comprehensive ROS is negative, except as noted in HPI. ED EXAM GENERAL NO PERIP PULSE - Physical Exam Exam: See Below Text/Narrative:: My physical exam is in the HPI Course - Vital Signs Text/Narrative:: Patient got sleepy from the Benadryl. 4:56 AM no airway problem. Face slightly less edematous. I elected not to prescribe steroids because her condition did not necessitate any serious intervention at this point. Steroids might reduce the effects she got from the vaccination. Last Recorded V/S: Last Vital Signs Temp 36.2 C 04/23/21 03:05 Pulse 103 H 04/23/21 03:05 Resp 18 04/23/21 03:05 BP 120/69 04/23/21 03:05 Pulse Ox 97 04/23/21 03:05 - Orders/Labs/Meds Labs: Laboratory Tests 04/23/21 04/23/21 04/23/21 Range/Units 03:40 03:40 03:40 Urine Color YELLOW Urine Appearance CLEAR Urine pH 6.0 (5.0-8.0) Ur Specific [place] <= 1.005 (1.001-1.035) Urine Protein NEGATIVE (NEGATIVE) mg/dL Urine Glucose (UA) NEGATIVE (NEGATIVE) mg/dL Urine Ketones NEGATIVE (NEGATIVE) mg/dL Urine Occult Blood MODERATE H (NEGATIVE) Urine Nitrite NEGATIVE (NEGATIVE) Urine Bilirubin NEGATIVE (NEGATIVE) Urine Urobilinogen 0.2 (<2.0) EU/dL Ur Leukocyte Esterase NEGATIVE (NEGATIVE) Urine RBC 0-1 (0-2/HPF) Urine WBC 0-1 (0-5/HPF) Ur Epithelial Cells RARE (NONE-FEW) Urine Bacteria RARE (NEGATIVE) Urine HCG, Qual NEGATIVE (NEGATIVE) SARS-CoV-2 RNA (LEONARDO) NEGATIVE (NEGATIVE) Meds: Medications Discontinued Medications Generic Name Dose Route Start Last Admin Trade Name Freq PRN Reason Stop Dose Admin Diphenhydramine HCl 50 mg 04/23/21 03:39 04/23/21 04:02 Diphenhydramine 50 Mg Cap PO 04/23/21 03:40 50 mg ONETIME ONE Administration Departure - Departure Time of Disposition: 04:56 Disposition: Home, Self-Care 01 Condition: Good Clinical Impression: Facial swelling, Vaccine reaction - Discharge Information Instructions: Allergies, Adult Referrals: Cole Mallory MD [Primary Care Provider] - Forms: ED Department Discharge Additional Instructions: Take [id number] antihistamines. If you have trouble breathing wheezing or swelling about your throat return. [facility] - Primary Care [address] [place] [address] [facility] [address] [place] [address] The following information is given to patients seen in the emergency department who are being discharged to home. This information is to outline your options for follow-up care. We provide all patients seen in our emergency department with a follow-up referral. The need for follow-up, as well as the timing and circumstances, are variable depending upon the specifics of your emergency department visit. If you don't have a primary care physician on staff, we will provide you with a referral. We always advise you to contact your personal physician following an emergency department visit to inform them of the circumstance of the visit and for follow-up with them and/or the need for any referrals to a consulting specialist. The emergency department will also refer you to a specialist when appropriate. This referral assures that you have the opportunity for follow-up care with a specialist. All of these measure are taken in an effort to provide you with optimal care, which includes your follow-up. Under all circumstances we always encourage you to contact your private physician who remains a resource for coordinating your care. When calling for follow-up care, please make the office aware that this follow-up is from your recent emergency room visit. If for any reason you are refused follow-up, please contact the [facility] Emergency Department at and asked to speak to the emergency department charge nurse. Sepsis Event Note (ED) - Focused Exam Vital Signs: Vital Signs Temp Pulse Resp BP Pulse Ox 04/23/21 03:05 36.2 C 103 H 18 120/69 97
[2021-04-23 05:48] VITALS: BP 118/73; PULSE 82
== END 2021-04-23 05:48 | disposition home or self-care (01) ==
LOC: MW.ED 02:42
DX: R22.0 Localized swelling, mass and lump, head (principal); T50.B95A Adverse effect of other viral vaccines, initial encounter; J45.909 Unspecified asthma, uncomplicated; E66.9 Obesity, unspecified; Z68.32 Body mass index [BMI] 32.0-32.9, adult; Z79.899 Other long term (current) drug therapy; Z20.822 Contact with and (suspected) exposure to COVID-19
CPT/HCPCS: 81001; 81025; 87635; 99284; A9270; U0002

== ENCOUNTER 2022-02-27 16:52 | Emergency (ER) | payer BC ==
[2022-02-27 17:06] VITALS: PULSE 83
[2022-02-27] MEDS ORDERED: Acetaminophen/HYDROcodone 325-5 MG Tab PO ONE (17:53)
[2022-02-27 19:20] VITALS: BP 119/75
== END 2022-02-27 19:19 | disposition home or self-care (01) ==
LOC: MW.ED 16:52
DX: R05.9 Cough, unspecified (principal); E66.9 Obesity, unspecified; Z68.33 Body mass index [BMI] 33.0-33.9, adult; Z20.822 Contact with and (suspected) exposure to COVID-19
CPT/HCPCS: 71046; 87635; 99283; A9270; U0002

== ENCOUNTER 2023-06-16 08:58 | Day surgery (SDC) | payer BC ==
[~2023-06-16 08:58] MED LIST changes: +Sodium Chloride 0.9% 10 ML Syringe FLUSH PRN; +Sodium Chloride 0.9% 2.5 ML Syringe FLUSH PRN; +Sodium Chloride 0.9% 20 ML SDV IV PRN; -ceFAZolin 2 GM in Premix Bag 1 BAG IV ONE
[2023-06-16] MEDS ORDERED: propofoL 50 ML ONE (13:36)
[2023-06-16] MEDS ORDERED: Propofol 200 MG/20 ML SDV ONE (14:06)
[2023-06-16] MEDS ORDERED: Lactated Ringers 1,000 ML IV SCH (14:30)
[2023-06-16 15:13] VITALS: BP 102/64; PULSE 61
== END 2023-06-16 15:18 | disposition home or self-care (01) ==
LOC: MW.SDS 08:58
PROVIDERS: ATTEND Surgery
DX: K29.50 Unspecified chronic gastritis without bleeding (principal); K21.00 Gastro-esophageal reflux disease with esophagitis, without bleeding; K44.9 Diaphragmatic hernia without obstruction or gangrene; J45.998 Other asthma; Z86.16 Personal history of COVID-19; E66.9 Obesity, unspecified; Z68.32 Body mass index [BMI] 32.0-32.9, adult; F41.9 Anxiety disorder, unspecified; Z98.51 Tubal ligation status; Z90.49 Acquired absence of other specified parts of digestive tract; Z79.51 Long term (current) use of inhaled steroids; Z79.899 Other long term (current) drug therapy
CPT/HCPCS: 81025; J2704; J7120

== ENCOUNTER 2024-03-02 16:35 | Emergency (ER) | payer BC ==
[2024-03-02 17:18] VITALS: BP 138/96; PULSE 81
[2024-03-02] MEDS: Diphtheria,Pertussis(Acell),Tetanus Vaccine 0.5 ML Syringe IM ONE (17:52)
[2024-03-02] MEDS: Lidocaine 1% 5 ML VIAL INJECT STA (17:54)
== END 2024-03-02 19:07 | disposition home or self-care (01) ==
LOC: MW.ED 16:35
DX: S61.012A Laceration without foreign body of left thumb without damage to nail, initial encounter (principal); J45.909 Unspecified asthma, uncomplicated; Z23 Encounter for immunization; Z79.899 Other long term (current) drug therapy; W26.8XXA Contact with other sharp object(s), not elsewhere classified, initial encounter
CPT/HCPCS: 12002; 12011; 90471; 90715; 99282-25; 99283; J3490

== ENCOUNTER 2024-06-14 19:26 | Emergency (ER) | payer BC ==
[2024-06-14 19:36] VITALS: BP 128/75; PULSE 76
[2024-06-14] MEDS: Sodium Chloride 0.9% 2.5 ML Syringe FLUSH PRN (20:08)
[2024-06-14] MEDS: Sodium Chloride 0.9% 10 ML Syringe FLUSH PRN (20:08)
[2024-06-14] MEDS: Ampicillin/Sulbactam Na 3 GM in Sodium Chloride 0.9% 100 ML IV ONE (20:08)
== END 2024-06-14 20:54 | disposition home or self-care (01) ==
LOC: MW.ED 19:26
DX: L03.011 Cellulitis of right finger (principal); E66.9 Obesity, unspecified; Z68.32 Body mass index [BMI] 32.0-32.9, adult; Z79.899 Other long term (current) drug therapy; Z90.49 Acquired absence of other specified parts of digestive tract; W55.01XA Bitten by cat, initial encounter
CPT/HCPCS: 96365; 99283; J0295; J3490

== ENCOUNTER 2024-08-19 10:32 | Emergency (ER) | payer BC ==
[2024-08-19] MEDS: Ondansetron 4 MG Tab.DIS PO ONE (11:27)
[2024-08-19 12:13] VITALS: BP 128/84; PULSE 68
== END 2024-08-19 12:13 | disposition home or self-care (01) ==
LOC: MW.ED 10:32
DX: S06.0X0A Concussion without loss of consciousness, initial encounter (principal); S01.01XA Laceration without foreign body of scalp, initial encounter; J45.909 Unspecified asthma, uncomplicated; E66.9 Obesity, unspecified; Z90.49 Acquired absence of other specified parts of digestive tract; Z75.8 Other problems related to medical facilities and other health care; Z68.32 Body mass index [BMI] 32.0-32.9, adult; W00.0XXA Fall on same level due to ice and snow, initial encounter
CPT/HCPCS: 12001; 70450; 70450-26; 99284

== ENCOUNTER 2024-08-27 16:01 | Emergency (ER) | payer BC ==
[2024-08-27 17:12] VITALS: BP 104/68; PULSE 77
== END 2024-08-27 17:13 | disposition home or self-care (01) ==
LOC: MW.ED 16:01
DX: S06.0X0A Concussion without loss of consciousness, initial encounter (principal); E66.9 Obesity, unspecified; Z90.49 Acquired absence of other specified parts of digestive tract; Z75.8 Other problems related to medical facilities and other health care; Z68.32 Body mass index [BMI] 32.0-32.9, adult; W00.9XXA Unspecified fall due to ice and snow, initial encounter
CPT/HCPCS: 99283

== ENCOUNTER 2025-04-15 09:52 | Day surgery (SDC) | payer BC, OTHER ==
[~2025-04-15 09:52] MED LIST changes: -Lactated Ringers 1,000 ML IV SCH; -Sodium Chloride 0.9% 20 ML SDV IV PRN
[2025-04-15] MEDS: Lactated Ringers 1,000 ML IV SCH (10:31)
[2025-04-15] MEDS ORDERED: propofoL 500 MG/50 ML 50 ML ONE (12:00)
[2025-04-15] MEDS ORDERED: Propofol 200 MG/20 ML SDV ONE (12:22)
[2025-04-15] MEDS ORDERED: Ketorolac 30 MG/ML SDV ONE (13:22)
[2025-04-15] MEDS: Ketorolac 30 MG/ML SDV IM ONE (13:25)
[2025-04-15] MEDS: Acetaminophen/oxyCODONE 325-5 MG Tab PO PRN (13:42)
[2025-04-15 13:55] VITALS: BP 109/62; PULSE 56
== END 2025-04-15 14:25 | disposition home or self-care (01) ==
LOC: MW.SDS 09:52
PROVIDERS: ATTEND Surgery
DX: D12.3 Benign neoplasm of transverse colon (principal); K63.5 Polyp of colon; K21.9 Gastro-esophageal reflux disease without esophagitis; J45.909 Unspecified asthma, uncomplicated; Z79.899 Other long term (current) drug therapy
CPT/HCPCS: 43239; 45380; 81025; A9270; J1885; J2704; J7120; 00813